=== PATIENT | female | born 1950 | race Caucasian/White ===

== ENCOUNTER → 2017-03-31 | Outpatient (CLI) | payer BC, OTHER ==
[~2017-03-31] MED LIST: ALBU8.5H2 IH; ALBU8.5H4 IH; ASP81CT PO; ASPI-892 PO; BENZ200C25 PO; BPR100TCR PO; BPR150TCR PO; CLOP75TA PO; DEXL60CA5 PO; DIPH25TA82 PO; DOXY100C2 PO; ESTR0.455 PO; GFN600TCR PO; IPRA3AMP11 INH; LEVO500T69 PO; LISI2.5T PO; LVT.025T PO; LVT.112T PO; Levofloxacin PO; METH4TAB PO; MTP25TSR PO; Nystatin PO; OMEP20CA12 PO; PNT40TEC PO; PRD20T PO; PRED5TAB PO; SCR1T1 PO; SIMV10TA3 PO; SIMV20TA3 PO; TRM50T PO; WRF1T PO; WRF5T PO
== END ==
LOC: CARD 14:04
PROVIDERS: ATTEND Nurse Practitioner Family
DX: I25.10 Atherosclerotic heart disease of native coronary artery without angina pectoris (principal); I65.23 Occlusion and stenosis of bilateral carotid arteries; E78.2 Mixed hyperlipidemia; R07.89 Other chest pain
CPT/HCPCS: 93306

== ENCOUNTER → 2017-04-04 | Outpatient (CLI) | payer BC, OTHER ==
[~2017-04-04] VITALS: Ht 165.1 cm; Wt 67.1 kg
[~2017-04-04] MED LIST changes: +CATHETER FLUSH 10 ML SYR IV PRN; +REGADENOSON 0.4 MG/5 ML SYR (LEXISCAN) IV ONE
[2017-04-04 09:32] VITALS: BP 140/90
--- NOTE | 2017-04-05 16:36 | STRESS TEST ---
DATE OF SERVICE: 04/04/2017 RESTING AND POST REGADENOSON TECHNETIUM 99M TETROFOSMIN SPECT CT IMAGING Baseline images were carried out after injection of 10.12 mCi Technetium 99 Tetrofosmin. This was followed by 0.4 mg regadenoson and 31 mCi of Technetium 99 Tetrofosmin for stress imaging. The electrocardiogram showed sinus rhythm at baseline and it did not change significantly with the regadenoson infusion. There was nonspecific ST abnormality throughout the study. Isolated premature ventricular contractions were seen. The patient did not report any significant symptoms with the regadenoson infusion. Review of images at rest and following stress did not indicate any significant perfusion defects consistent with significant myocardial ischemia or infarction. Gated images show normal global left ventricular systolic function with normal regional wall motion. Left ventricular ejection fraction is calculated to be 56%. Left ventricular end diastolic volume is 43 mL. TID is absent (1.09). CONCLUSIONS: 1. No evidence of any significant myocardial ischemia or infarction on this study. 2. Normal regional wall motion. 3. Normal global left ventricular systolic function with a calculated ejection fraction of 56%. Job ID: [id number] DocumentID: [id number] Dictated Date: 04/04/2017 18:10:10 Driving Teacher Date: 04/05/2017 00:38:57 Dictated By: RHONA TANNER MD, MA, FACP, FACC,
== END ==
LOC: CARD 07:58
PROVIDERS: ATTEND Nurse Practitioner Family
DX: I25.10 Atherosclerotic heart disease of native coronary artery without angina pectoris (principal); I65.23 Occlusion and stenosis of bilateral carotid arteries; E78.2 Mixed hyperlipidemia; R07.89 Other chest pain
CPT/HCPCS: 78452; 93017

== ENCOUNTER 2019-02-24 10:58 | Inpatient (IN) | payer BC, MEDICARE ==
[2019-02-24] VITALS (14 sets, daily range): BP systolic 108–152; BP diastolic 67–102
[~2019-02-24] VITALS: Ht 162.6 cm; Wt 72.3 kg
[~2019-02-24 10:58] MED LIST changes: -CATHETER FLUSH 10 ML SYR IV PRN; -REGADENOSON 0.4 MG/5 ML SYR (LEXISCAN) IV ONE
[2019-02-24] MEDS ORDERED: ASPIRIN 81 MG CHEW (CHILDREN'S ASA) PO ONE (11:15)
[2019-02-24] MEDS ORDERED: NITROGLYCERIN 0.4 MG SL TABS BTL 25'S SL PRN (11:15)
[2019-02-24 11:28] LABS: BASOPHILS % (AUTO) 0 % (0-10); EOSINOPHILS # (AUTO) 0.2 10^3/uL (0.0-0.3); EOSINOPHILS % (AUTO) 1 % (0-10); HEMATOCRIT 44 % (35-52); HEMOGLOBIN 15.2 G/DL (11.5-16.0); LYMPHOCYTES # (AUTO) 3.1 X 10^3 (1.0-4.0); LYMPHOCYTES % (AUTO) 25 % (12-44); MEAN CORPUSCULAR HEMOGLOBIN 30 PG (25-34); MEAN CORPUSCULAR HGB CONC 35 G/DL (32-36); MEAN CORPUSCULAR VOLUME 87 FL (80-99); MEAN PLATELET VOLUME 10.7 FL (7.4-10.4); MONOCYTES # (AUTO) 0.9 X 10^3 (0.0-1.0); MONOCYTES % (AUTO) 7 % (0-12); NEUTROPHILS # (AUTO) 8.5 X 10^3 (1.8-7.8); NEUTROPHILS % (AUTO) 67 % (42-75); PLATELET COUNT 345 10^3/uL (130-400); RED CELL DISTRIBUTION WIDTH 12.3 % (10.0-14.5); WHITE BLOOD COUNT 12.7 10^3/uL (4.3-11.0)
--- NOTE | 2019-02-24 11:30 | NUR ---
ORDER TO HOLD 2ND NITRO BY BLANCA ABDUL
[2019-02-24 11:36] LABS: INR 0.9 (0.8-1.4); PROTHROMBIN TIME PATIENT 12.6 SEC (12.2-14.7)
[2019-02-24 11:48] LABS: ALANINE AMINOTRANSFERASE 18 U/L (0-55); ALBUMIN 4.2 GM/DL (3.2-4.5); ALKALINE PHOSPHATASE 109 U/L (40-136); BILIRUBIN,TOTAL 1.4 MG/DL (0.1-1.0); BUN/CREATININE RATIO 20; CALCIUM 9.9 MG/DL (8.5-10.1); CARBON DIOXIDE 22 MMOL/L (21-32); CHLORIDE 109 MMOL/L (98-107); CREATININE SERUM 0.74 MG/DL (0.60-1.30); GFR ESTIMATED > 60; GLUCOSE 97 MG/DL (70-105); MAGNESIUM 1.9 MG/DL (1.8-2.4); POTASSIUM 4.1 MMOL/L (3.6-5.0); SODIUM 143 MMOL/L (135-145); TOTAL PROTEIN 7.7 GM/DL (6.4-8.2)
--- NOTE | 2019-02-24 11:49 | ED Chest Pain ---
General Chief Complaint: Chest Pain Stated Complaint: CP Nursing Triage Note: AMB TO ED C/O CHEST PAIN ONSET THIS AM PAIN WORSE MOVEMENT. Nursing Sepsis Screen: No Definite Risk Source: patient, family Exam Limitations: no limitations History of Present Illness Date Seen by Provider: February 24, 2019 Time Seen by Provider: 11:00 Initial Comments 68-year-old female who presents to the emergency room with complaints of left- sided chest pain that started this morning upon waking around 0730. She reports pain is worse with movement. She reports the pain starts in her left shoulder and radiates to mid chest. She was found to be hypoxic on arrival to the emergency room. She reports taking 2 Tylenol 500 mg for pain without relief. She reports history of SD in 2011. She reports that she has had a a cough the last 2 days. Timing/Duration: 4-6 hours Allergies and Home Medications Allergies Coded Allergies: cephalexin (Verified Allergy, Unknown, HIVES, 08/04/10) warfarin (Unverified Allergy, Unknown, 10/15/14) codeine (Verified Adverse Reaction, Unknown, MADE iLL, 08/04/10) Home Medications Albuterol Sulfate 8.5 Gm Aer.w.adap, 2 PUFF IH Q6H PRN for SHORTNESS OF BREATH, (Reported) Albuterol/Ipratropium 3 Ml Nebu, 3 ML INH RTQ6HR Prescribed by: JENNIE GARRETT on 03/07/151126 Aspirin 81 Mg Tabec, 81 MG PO HS, (Reported) Clopidogrel Bisulfate 75 Mg Tablet, 75 MG PO HS, (Reported) Guaifenesin 600 Mg Tab, 600 MG PO BID Prescribed by: JENNIE GARRETT on 03/07/15 112 Levothyroxine Sodium 112 Mcg Tab, 112 MCG PO DAILY, (Reported) Pantoprazole Sod 40 Mg Tab, 40 MG PO BID, (Reported) Prednisone 5 Mg Tablet, 5 MG PO UD Prescribed by: JENNIE GARRETT on 03/07/15 112 Simvastatin 20 Mg Tablet, 20 MG PO HS, (Reported) [Levofloxacin] 750 MG TABLET, 750 MG PO DAILY@1100 Prescribed by: JENNIE GARRETT on 03/07/15 112 [Nystatin] 5 ML SUSP, 5 ML PO Q6HR Prescribed by: JENNIE GARRETT on 03/07/151126 Patient Home Medication List Home Medication List Reviewed: Yes Review of Systems Review of Systems Constitutional: see HPI; No chills, No fever Respiratory: See HPI, Cough Cardiovascular: See HPI, Chest Pain All Other Systems Reviewed Negative Unless Noted: Yes Past Tqsidra-Lkdcqc-Issuin Hx Past Med/Social Hx: Reviewed Nursing Past Med/Soc Hx Patient Social History Alcohol Use: Denies Use 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) Smoking Status: Never a Smoker Recent Foreign Travel: No Contact w/Someone Who Travel: No Recent Infectious Disease Expo: No Recent Hopitalizations: Yes (tb in the past and pneumonia) Immunizations Up To Date Tetanus Booster (TDap): More than 5yrs Date of Pneumonia Vaccine: Oct 16, 2008 Date of Influenza Vaccine: Aug 16, 2014 Past Medical History Surgeries: Yes (HYSTERECTOMY, LUMPHECTOMY, BLADDER TUCK) Bladder Surgery, Coronary Stent, Hysterectomy Respiratory: Yes (HX TB) Pneumonia, Chronic Bronchitis, COPD Cardiac: Yes Coronary Artery Disease, Heart Attack, High Cholesterol Neurological: No 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 Disorders: No Female 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 Disorders: 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 Sexually Transmitted Disease: No HIV/AIDS: No Kidney Infection Gastrointestinal: Yes Gastroesophageal Reflux, Hiatal Hernia Musculoskeletal: Yes Arthritis Endocrine: Yes Hypothyroidsim Cataract, Tinnitis Loss of Vision: Denies Hearing Impairment: Denies Cancer: Yes Cervical Psychosocial: Yes Depression Integumentary: No Blood Disorders: No Adverse Reaction/Blood Tranf: No Family Medical History Reviewed Nursing Family Hx Alcoholism 19 FATHER Arthritis Cardiovascular disease 19 MOTHER Completed stroke 19 MOTHER Diabetes mellitus 19 MOTHER Drug abuse G8 BROTHER G8 BROTHER Hypertension 19 MOTHER Myocardial infarction 19 MOTHER Psychosocial problem 19 MOTHER G8 SISTER G8 SISTER Respiratory disorder No Family History of: AIDS Abdominal aortic aneurysm [place]'s disease Alzheimer's disease Aphasia Asthma Cancer of mouth Cataracts Colon cancer Congenital disease Congenital heart disease Coronary thrombosis Cystic fibrosis Deafness or hearing loss Dementia Dysphasia Fibrocystic disease of breast Gastroenteritis Glaucoma Headache disorder Hypercholesterolemia Infertility Kidney disease Neoplasm Not obtainable due to adoption Osteoporosis Parkinson's disease Prostate cancer Seizure disorder Severe allergy Thyroid disease Tuberculosis Visual disorder Physical Exam Vital Signs Vital Signs - First Documented 02/24/19 11:01 Pulse 100 Resp 18 B/P (MAP) 159/98 (118) Pulse Ox 92 O2 Delivery Nasal Cannula O2 Flow Rate 2.00 Capillary Refill : Less Than 3 Seconds Height, Weight, BMI Height: 5'1.00" Weight: 149lbs. 0.0oz. 67.626129fy; 24.6 BMI Method:Stated General Appearance: No Apparent Distress, WD/WN Neck: Full Range of Motion, Normal Inspection, Non Tender Respiratory: Lungs Clear, Normal Breath Sounds, No Accessory Muscle Use, No Respiratory Distress, Other (left-sided chest tenderness.) Cardiovascular: Regular Rate, Rhythm, No Edema, No Gallop, No JVD, No Murmur, Normal Peripheral Pulses Extremity: Normal Capillary Refill Neurologic/Psychiatric: Alert, Oriented x3, Normal Mood/Affect Skin: Normal Color, Warm/Dry Progress/Results/Core Measures Results/Orders Lab Results Laboratory Tests Test 02/24/19 11:17 Range/Units White Blood Count 12.7 H 4.3-11.0 10^3/uL Red Blood Count 5.07 4.35-5.85 10^6/uL Hemoglobin 15.2 11.5-16.0 G/DL Hematocrit 44 35-52 % Mean Corpuscular Volume 87 80-99 FL Mean Corpuscular Hemoglobin 30 25-34 PG Mean Corpuscular Hemoglobin Concent 35 32-36 G/DL Red Cell Distribution Width 12.3 10.0-14.5 % Platelet Count 345 130-400 10^3/uL Mean Platelet Volume 10.7 H 7.4-10.4 FL Neutrophils (%) (Auto) 67 42-75 % Lymphocytes (%) (Auto) 25 12-44 % Monocytes (%) (Auto) 7 0-12 % Eosinophils (%) (Auto) 1 0-10 % Basophils (%) (Auto) 0 0-10 % Neutrophils # (Auto) 8.5 H 1.8-7.8 X 10^3 Lymphocytes # (Auto) 3.1 1.0-4.0 X 10^3 Monocytes # (Auto) 0.9 0.0-1.0 X 10^3 Eosinophils # (Auto) 0.2 0.0-0.3 10^3/uL Basophils # (Auto) 0.0 0.0-0.1 10^3/uL Prothrombin Time 12.6 12.2-14.7 SEC INR Comment 0.9 0.8-1.4 Activated Partial Thromboplast Time 31 24-35 SEC D-Dimer 0.70 H 0.00-0.49 UG/ML Sodium Level 143 135-145 MMOL/L Potassium Level 4.1 3.6-5.0 MMOL/L Chloride Level 109 H 98-107 MMOL/L Carbon Dioxide Level 22 21-32 MMOL/L Anion Gap 12 5-14 MMOL/L Blood Urea Nitrogen 15 7-18 MG/DL Creatinine 0.74 0.60-1.30 MG/DL Estimat Glomerular Filtration Rate > 60 BUN/Creatinine Ratio 20 Glucose Level 97 70-105 MG/DL Calcium Level 9.9 8.5-10.1 MG/DL Corrected Calcium 9.7 8.5-10.1 MG/DL Magnesium Level 1.9 1.8-2.4 MG/DL Total Bilirubin 1.4 H 0.1-1.0 MG/DL Aspartate Amino Transf (AST/SGOT) 20 5-34 U/L Alanine Aminotransferase (ALT/SGPT) 18 0-55 U/L Alkaline Phosphatase 109 40-136 U/L Myoglobin 27.0 10.0-92.0 NG/ML Troponin I < 0.028 <0.028 NG/ML Total Protein 7.7 6.4-8.2 GM/DL Albumin 4.2 3.2-4.5 GM/DL Free Thyroxine 1.52 H 0.70-1.48 NG/DL TSH [place] Testing 0.00 L 0.35-4.94 UIU/ML My Orders Orders - BERNOT,GERONIMO Cbc With Automated Diff (02/24/19 11:06) Magnesium (02/24/19 11:06) Chest 1 View, Ap/Pa Only (02/24/19 11:06) Cardiac Profile 1 (02/24/19 11:06) Comprehensive Metabolic Panel (02/24/19 11:06) Myoglobin Serum (02/24/19 11:06) Protime With Inr (02/24/19 11:06) Partial Thromboplastin Time (02/24/19 11:06) O2 (02/24/19 11:06) Monitor-Rhythm Ecg Trace Only (02/24/19 11:06) Lipid Panel (02/25/19 06:00) Ed Iv/Invasive Line Start (02/24/19 11:06) Nitroglycerin 0.4 Mg Btl 25's (Nitrostat (02/24/19 11:15) Aspirin Chewable Tablet (Baby Aspirin Ch (02/24/19 11:15) Thyroid Analyzer (02/24/19 11:35) Fibrin Degradation Products (02/24/19 11:17) Free T4 (Free Thyroxine) (02/24/19 11:17) Medications Given in ED Vital Signs/I&O 02/24/19 02/24/19 11:01 11:57 Pulse 100 69 Resp 18 18 B/P (MAP) 159/98 (118) 129/95 (106) Pulse Ox 92 99 O2 Delivery Nasal Cannula Nasal Cannula O2 Flow Rate 2.00 2.00 Blood Pressure Mean: 118 Progress Progress Note : Time: 11:55 Progress Note I have seen and evaluated the patient. I've informed her of her imaging studies and the need for possible chest tube. I have discussed the case with Dr. BUSTAMANTE and he recommends admitting the patient to the ICU for chest tube placement. The patient agrees with plan of care. Awaiting laboratory findings at this time. Initial ECG Impression Date: February 24, 2019 Initial ECG Impression Time: 11:07 Initial ECG Rate: 94 Initial ECG Rhythm: Normal Sinus (ventricular bigeminy new finding.) Initial ECG Comparisson: Changed Diagnostic Imaging Diagonstic Imaging: Xray Plain Films/CT/US/NM/MRI: chest Comments [facility] [place], [place] NAME: MACKENZIE STANLEY [facility] REC#: [id number] PT STATUS: REG ER : 1950 PHYSICIAN: GERONIMO CULVER ADMIT DATE: 02/24/19/ER Draft Date of Exam:02/24/19 CHEST 1 VIEW, AP/PA ONLY Indication: Chest pain radiating to the left shoulder. Comparison: 07/07/2016. Discussion: Single portable upright view of the chest was obtained. A 2 cm left pneumothorax extending along the periphery of the left lung. There was no midline shift. Underlying COPD is present. Normal heart size. No pleural fluid or osseous abnormality. Impression: 1. Moderate left pneumothorax. Critical finding was called to the ER physician at time of exam by Dr. Morales. Dictated on workstation # [id number] Dict: 02/24/19 1143 Trans: 02/24/19 1149 [facility] [id number] Interpreted by: TIO MORALES MD Electronically signed by: Reviewed: Reviewed by Me, Discussed w/Radiologist Departure Communication (Admissions) Time/Spoke to Admitting Phy: 12:02 I have discussed the case with Dr. BUSTAMANTE at this time and he wishes to have the patient admitted to the ICU for spontaneous pneumothorax and chest tube placement. Impression Primary Impression: left sided spontaneous pneumothorax Disposition: ADMITTED INPATIENT Condition: Stable Admissions Decision to Admit Reason: Admit from ER (Trauma) Decision to Admit/Date: February 24, 2019 Time/Decision to Admit Time: 12:02 Departure-Patient Inst. Referrals: PAVEL STRATTON DO (PCP/Family) Primary Care Physician GERONIMO CULVER February 24, 2019 11:49
--- NOTE | 2019-02-24 12:25 | NUR ---
MACKENZIE STANLEY admitted to room CU7-1, with an admitting diagnosis of LEFT SPONTENOUS PNEUMO, on 02/24/19 from ER via BED, accompanied by STAFF.MACKENZIE STANLEY introduced to surroundings, call light, bed controls, phone, TV, temperature control, lights, meal times, smoking policy, visitor policy, side rail policy, bathrooms and showers. Patient Rights given to patient in the handbook. MACKENZIE STANLEY verbalizes understanding that [facility] is not responsible for the loss or damage to any personal effects or valuables that are kept in the patients posession during their hospitalization. The following Patient Care Plans were discussed with the PT: Discharge Planning, INEFFECTIVE BREATHING PATTERN,IMPAIRED GAS EXCHANGE, and KNOWLEDGE DEFICIT:PNEUMO. MACKENZIE STANLEY verbalizes understanding of Interdisciplinary Patient Education. Patient and family were informed about the Rapid Response Team and its purpose.
[2019-02-24 12:34] LABS: FIBRIN DEGRADATION PRODUCTS 0.7 UG/ML (0.00-0.49)
[2019-02-24 12:41] LABS: FREE T4 (FREE THYROXINE) 1.52 NG/DL (0.70-1.48)
[2019-02-24] MEDS ORDERED: LIDOCAINE 1% INJ 20 ML 20 ML VIAL ONE (12:53)
[2019-02-24] MEDS: fentaNYL INJECTION 100 MCG/2 ML AMP IV PRN ×3 (12:58→22:22)
--- NOTE | 2019-02-24 13:55 | HISTORY AND PHYSICAL ---
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 HISTORY OF PRESENT ILLNESS: The patient is a 68-year-old female who presented to the Emergency Department with left-sided chest pain when she woke up this morning. She stated that the pain was worse upon movement. The pain was of the left shoulder and did radiate towards the chest as well. She states that upon exertion, she did become short of breath as well. She states for the past two days she has been coughing significantly. She does have a history of COPD as well. A chest x-ray was performed, which did show a significant spontaneous pneumothorax approximately 30 to 35%. PAST MEDICAL HISTORY: COPD, history of tuberculosis, coronary artery disease, history of myocardial infarction, hypercholesterolemia, hypertension, gastroesophageal reflux disease, hypothyroid. PAST SURGICAL HISTORY: Hysterectomy with a bladder suspension, breast lumpectomy, cardiac catheterization and stent placement. ALLERGIES: CEPHALEXIN, WARFARIN and CODEINE. MEDICATIONS: Albuterol 2 puffs q.6 hours p.r.n., albuterol nebulizer q.6 hours, aspirin 81 mg daily, Plavix 75 mg daily, levothyroxine 112 mcg daily, Protonix 40 mg b.i.d., prednisone 5 mg every other day, simvastatin 20 mg daily, guaifenesin 600 mg b.i.d. SOCIAL HISTORY: Previous tuberculosis and pneumonia from past IV drug abuse. No regular cigarette smoke, negative alcohol. FAMILY HISTORY: Mother, stroke, diabetes. VITAL SIGNS: Blood pressure 159/98, pulse 92, respirations 18, pulse ox 100% on 2 liters nasal cannula. REVIEW OF SYSTEMS: Well-nourished female currently in no acute distress. She is not experiencing any shortness of breath, no difficulty breathing. She was experiencing some cough; however, she has a history of COPD and does have a chronic cough; however, this was much worse in the past two days. Exertion of shortness of breath. No sputum production, no hemoptysis. No nausea, vomiting, no diarrhea, constipation, no red blood per rectum, no dark tarry stools. No fever, chills, no recent inadvertent weight loss. All other review of systems negative. PHYSICAL EXAMINATION: CHEST: Scattered rales and rhonchi bilaterally, decreased breath sounds of the left chest. HEART: Regular, no murmurs. EXTREMITIES: No lower extremity edema, negative Homans sign. HEENT: No scleral icterus. NECK: No cervical lymphadenopathy. ABDOMEN: Soft, nontender, nondistended. SKIN: Warm, dry. ASSESSMENT AND PLAN: A 68-year-old female with spontaneous pneumothorax, most likely from a ruptured pulmonary bleb from history of COPD. We will place a pneumothorax catheter in place to one-way valve and proceed with followup chest x-ray. Job ID: [id number] DocumentID: [id number] Dictated Date: 02/24/2019 13:05:56 Peach Grower Date: 02/24/2019 13:54:36 Dictated By: DIANNE BUSTAMANTE MD
--- NOTE | 2019-02-24 14:06 | Diagnostic Imaging Report ---
Indication: Dyspnea, chest tube placement. Comparison: Earlier same date. Discussion: Single view of the chest was obtained. Small bore chest tube is now present on the left though this is likely extra cavitary as the tip is noted within the soft tissues. Small amount of subcutaneous emphysema is present. Pneumothorax is otherwise stable to slightly decreased. The right lung is well-aerated. Normal heart size. Impression: 1. Small bore left chest tube which is likely outside of the chest cavity, as described. Dictated by: Dictated on workstation # [id number]
[2019-02-24] MEDS: ACETAMINOPHEN 325 MG TABLET PO PRN (15:02)
--- NOTE | 2019-02-24 15:08 | OPERATIVE REPORT ---
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 PREPROCEDURE DIAGNOSIS: Spontaneous left pneumothorax. POSTPROCEDURE DIAGNOSIS: Spontaneous left pneumothorax. PROCEDURE: Placement of left chest tube. SURGEON: Dianne Bustamante MD ANESTHESIA: Local. ESTIMATED BLOOD LOSS: Minimal. FINDINGS: No air leak identified. DISPOSITION: The patient tolerated the procedure well. INDICATIONS: The patient is a 68-year-old female, who states that she had developed left-sided chest pain this morning upon awakening. She report that this hurt worse upon ambulation. She also reports that she has had a chronic cough; however, this has been worse over the past few days. The pain was persistent and she presented to the Emergency Department where a chest x-ray was performed, which did show a significant sized pneumothorax, approximately 30 to 35%. She does have a history of COPD and did smoke in the past; however, quit approximately 8 years ago. The left lateral chest was prepped and draped in standard surgical fashion. 1% lidocaine was then used to anesthetize the skin, subcutaneous tissue, muscle layers as well as the parietal pleura. A transverse skin incision was made using 11 blade. The trocar and sheath were then introduced without any resistance with drawing of air. The trocar was removed and the catheter suctioned with an aspiration syringe and the AirSeal device was applied to the chest wall. Good hemostasis was observed. The patient tolerated the procedure well. We will get a post-procedure chest x-ray. Job ID: [id number] DocumentID: [id number] Dictated Date: 02/24/2019 13:51:35 Concrete Mason Date: 02/24/2019 15:07:59 Dictated By: DIANNE BUSTAMANTE MD
[2019-02-25] VITALS (21 sets, daily range): BP systolic 78–142; BP diastolic 62–97
[2019-02-25] MEDS: fentaNYL INJECTION 100 MCG/2 ML AMP IV PRN ×6 (00:43→22:15)
[2019-02-25 03:37] LABS: BASOPHILS % (AUTO) 0 % (0-10); EOSINOPHILS # (AUTO) 0.1 10^3/uL (0.0-0.3); EOSINOPHILS % (AUTO) 1 % (0-10); HEMATOCRIT 43 % (35-52); HEMOGLOBIN 14.6 G/DL (11.5-16.0); LYMPHOCYTES # (AUTO) 1.2 X 10^3 (1.0-4.0); LYMPHOCYTES % (AUTO) 10 % (12-44); MEAN CORPUSCULAR HEMOGLOBIN 30 PG (25-34); MEAN CORPUSCULAR HGB CONC 34 G/DL (32-36); MEAN CORPUSCULAR VOLUME 88 FL (80-99); MONOCYTES # (AUTO) 0.8 X 10^3 (0.0-1.0); MONOCYTES % (AUTO) 6 % (0-12); NEUTROPHILS # (AUTO) 10.5 X 10^3 (1.8-7.8); NEUTROPHILS % (AUTO) 83 % (42-75); PLATELET COUNT 348 10^3/uL (130-400); RED CELL DISTRIBUTION WIDTH 12.8 % (10.0-14.5); WHITE BLOOD COUNT 12.6 10^3/uL (4.3-11.0)
[2019-02-25 03:58] LABS: BUN/CREATININE RATIO 17; CALCIUM 9.3 MG/DL (8.5-10.1); CARBON DIOXIDE 20 MMOL/L (21-32); CHLORIDE 108 MMOL/L (98-107); CHOLESTEROL 139 MG/DL (< 200); CREATININE SERUM 0.69 MG/DL (0.60-1.30); GFR ESTIMATED > 60; GLUCOSE 110 MG/DL (70-105); HDL CHOLESTEROL 49 MG/DL (40-60); MAGNESIUM 1.8 MG/DL (1.8-2.4); POTASSIUM 3.9 MMOL/L (3.6-5.0); SODIUM 141 MMOL/L (135-145); TRIGLYCERIDES 68 MG/DL (<150); VLDL CHOLESTEROL 14 MG/DL (5-40)
[2019-02-25] MEDS: POTASSIUM CL 10MEQ/50ML IVPB 50 ML IV SCH (05:52)
[2019-02-25] MEDS: KCL 20 MEQ TAB (K-DUR) PO SCH (05:53)
[2019-02-25] MEDS: MAGNESIUM 1 GM/100 ML IVPB 100 ML IV SCH (05:53)
--- NOTE | 2019-02-25 08:10 | Diagnostic Imaging Report ---
INDICATION: Pneumothorax. TECHNIQUE: Frontal view of the chest. COMPARISON: 02/24/2019 FINDINGS: Lung volumes are large. There is a moderate left pneumothorax which appears stable. There is a catheter adjacent to the left chest wall which is outside the chest cavity. Small amount of adjacent subcutaneous air is seen. No significant pleural effusion is seen. The cardiac silhouette is stable in size. IMPRESSION: 1. Stable moderate left pneumothorax. The catheter remains in the soft tissues outside the chest wall, appears unchanged. Dictated by: Dictated on workstation # [id number]
[2019-02-25] MEDS ORDERED: ASPIRIN 81 MG CHEW (CHILDREN'S ASA) PO NR (09:30)
[2019-02-25] MEDS ORDERED: PANTOPRAZOLE 40 MG (PROTONIX) TAB PO NR (09:30)
--- NOTE | 2019-02-25 09:34 | Consultation-Cardiology ---
HPI-Cardiology Cardiology Consultation: Date of Consultation 02/25/19 Time Seen by a Provider: 09:20 Date of Admission Attending Physician Gertrude Steele MD Admitting Physician [facility] Consulting Physician RHONA TANNER MD, MA, FACP, FACC, FSCAI, CCDS HPI: Chief Complaint: CC: L-sided chest pain HPI: 68 yo woman who developed L-sided cp yesterday and an increase in chronic shortness of breath. Has been diagnosed with spontaneous PTX and has a chest- tube in place on the L side. Has pleuritic chest discomfort on the L. No palp or syncope. No leg swelling Review of Systems-Cardiology Review of Systems Constitutional: malaise; No weight loss, No weight gain Eyes: No vision change Ears/Nose/Throat: No ear discharge, No nasal drainage, No recent hearing loss Respiratory: As described under HPI Cardiovascular: As described under HPI Gastrointestinal: No constipation, No diarrhea, No nausea, No vomiting Genitourinary: No dysuria, No hematuria, No urine frequency changes Musculoskeletal: joint pain (chronic) Skin: No rash, No ulcerations Psychiatric/Neurological: No seizure, No focal weakness, No syncope Hematologic: No bleeding abnormalities All Other Systems Reviewed Negative Unless Noted: Yes DFF-[id number]-[id number] Hx Patient Social History Alcohol Use: Denies Use 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 Family Medical History Family History: Alcoholism 19 FATHER Arthritis Cardiovascular disease 19 MOTHER Completed stroke 19 MOTHER Diabetes mellitus 19 MOTHER Drug abuse G8 BROTHER G8 BROTHER Hypertension 19 MOTHER Myocardial infarction 19 MOTHER Psychosocial problem 19 MOTHER G8 SISTER G8 SISTER Respiratory disorder No Family History of: AIDS Abdominal aortic aneurysm Ad's disease Alzheimer's disease Aphasia Asthma Cancer of mouth Cataracts Colon cancer Congenital disease Congenital heart disease Coronary thrombosis Cystic fibrosis Deafness or hearing loss Dementia Dysphasia Fibrocystic disease of breast Gastroenteritis Glaucoma Headache disorder Hypercholesterolemia Infertility Kidney disease Neoplasm Not obtainable due to adoption Osteoporosis Parkinson's disease Prostate cancer Seizure disorder Severe allergy Thyroid disease Tuberculosis Visual disorder Allergies and Home Medications Allergies Coded Allergies: cephalexin (Verified Allergy, Unknown, HIVES, 08/04/10) warfarin (Unverified Allergy, Unknown, 10/15/14) codeine (Verified Adverse Reaction, Unknown, MADE iLL, 08/04/10) Home Medications Albuterol Sulfate 8.5 Gm Aer.w.adap, 2 PUFF IH Q6H PRN for SHORTNESS OF BREATH, (Reported) Albuterol/Ipratropium 3 Ml Nebu, 3 ML INH RTQ6HR Prescribed by: JENNIE GARRETT on 03/07/15 1127 Aspirin 81 Mg Tabec, 81 MG PO HS, (Reported) Clopidogrel Bisulfate 75 Mg Tablet, 75 MG PO HS, (Reported) Guaifenesin 600 Mg Tab, 600 MG PO BID Prescribed by: JENNIE GARRETT on 03/07/15 112 Levothyroxine Sodium 112 Mcg Tab, 112 MCG PO DAILY, (Reported) Pantoprazole Sod 40 Mg Tab, 40 MG PO BID, (Reported) Prednisone 5 Mg Tablet, 5 MG PO UD Prescribed by: JENNIE GARRETT on 03/07/15 112 Simvastatin 20 Mg Tablet, 20 MG PO HS, (Reported) [Levofloxacin] 750 MG TABLET, 750 MG PO DAILY@1100 Prescribed by: JENNIE GARRETT on 03/07/15 1129 [Nystatin] 5 ML SUSP, 5 ML PO Q6HR Prescribed by: JENNIE GARRETT on 03/07/15 112 Patient Home Medication List Home Medication List Reviewed: Yes Physical Exam-Cardiology Physical Exam Vital Signs/I&O 02/24/19 02/24/19 02/24/19 02/25/19 22:00 23:00 23:30 00:00 Pulse 68 67 71 Resp 20 15 18 B/P (MAP) 141/79 (99) 128/79 (95) 121/75 (90) Pulse Ox 95 90 94 O2 Delivery Nasal Cannula Nasal Cannula Nasal Cannula Nasal Cannula O2 Flow Rate 2.00 2.00 2.00 2.00 02/25/19 02/25/19 02/25/19 02/25/19 00:00 00:00 01:00 01:05 Temp 98.7 Pulse 77 79 Resp 26 B/P (MAP) 112/83 (93) O2 Delivery Nasal Cannula Nasal Cannula O2 Flow Rate 2.00 2.00 02/25/19 02/25/19 02/25/1913/19 02:00 03:00 04:00 04:00 Temp 98.6 Pulse 62 69 63 Resp 15 16 15 B/P (MAP) 121/72 (88) 135/77 (96) 135/77 (96) Pulse Ox 93 94 94 O2 Delivery Nasal Cannula Nasal Cannula Nasal Cannula O2 Flow Rate 2.00 2.00 2.00 02/25/19 02/25/19 02/25/19 02/25/19 04:00 05:00 07:00 07:00 Pulse 69 63 66 Resp 14 17 B/P (MAP) 140/77 (98) Pulse Ox 94 O2 Delivery Nasal Cannula Nasal Cannula Nasal Cannula O2 Flow Rate 2.00 2.00 2.00 02/25/19 02/25/19 08:00 09:00 Pulse 69 76 Resp 41 25 B/P (MAP) 109/78 (88) 128/70 (89) Pulse Ox 96 96 O2 Delivery Nasal Cannula Nasal Cannula O2 Flow Rate 2.00 2.00 02/25/19 00:00 Intake Total 540 ml Balance 540 ml Capillary Refill : Less Than 3 Seconds Constitutional: AAO x 3, well-developed, well-nourished HEENT: EOMI, hearing is well preserved; No xanthelasmas are seen Neck: carotid pulses are 2 + bilaterally, with good upstrokes Respiratory: No accessory muscle use; other (fair air entry; prolonged exp) Cardiovascular: regular rate-rhythm, S1 and S2, systolic murmur (soft WILFREDO at card base) Gastrointestinal: No tender; soft; No guarding, No rebound; audible bowel sounds Extremities: No clubbing, No cyanosis, No significant edema Neurologic/Psychiatric: oriented x 3, grossly intact, power is 5/5 both on sides Skin: No rash on exposed areas, No ulcerations on exposed areas Data Review Labs Laboratory Tests 02/24/19 11:17: White Blood Count 12.7H, Red Blood Count 5.07, Hemoglobin 15.2, Hematocrit 44, Mean Corpuscular Volume 87, Mean Corpuscular Hemoglobin 30, Mean Corpuscular Hemoglobin Concent 35, Red Cell Distribution Width 12.3, Platelet Count 345, Mean Platelet Volume 10.7H, Neutrophils (%) (Auto) 67, Lymphocytes (%) (Auto) 25 , Monocytes (%) (Auto) 7, Eosinophils (%) (Auto) 1, Basophils (%) (Auto) 0, Neutrophils # (Auto) 8.5H, Lymphocytes # (Auto) 3.1, Monocytes # (Auto) 0.9, Eosinophils # (Auto) 0.2, Basophils # (Auto) 0.0, Prothrombin Time 12.6, INR Comment 0.9, Activated Partial Thromboplast Time 31, D-Dimer 0.70H, Sodium Level 143, Potassium Level 4.1, Chloride Level 109H, Carbon Dioxide Level 22, Anion Gap 12, Blood Urea Nitrogen 15, Creatinine 0.74, Estimat Glomerular Filtration Rate > 60, BUN/Creatinine Ratio 20, Glucose Level 97, Calcium Level 9.9, Corrected Calcium 9.7, Magnesium Level 1.9, Total Bilirubin 1.4H, Aspartate Amino Transf (AST/SGOT) 20, Alanine Aminotransferase (ALT/SGPT) 18, Alkaline Phosphatase 109, Myoglobin 27.0, Troponin I < 0.028, Total Protein 7.7 , Albumin 4.2, Free Thyroxine 1.52H, TSH [place] Testing 0.00L 02/25/19 03:05: White Blood Count 12.6H, Red Blood Count 4.93, Hemoglobin 14.6, Hematocrit 43, Mean Corpuscular Volume 88, Mean Corpuscular Hemoglobin 30, Mean Corpuscular Hemoglobin Concent 34, Red Cell Distribution Width 12.8, Platelet Count 348, Mean Platelet Volume 11.0H, Neutrophils (%) (Auto) 83H, Lymphocytes (%) (Auto) 10L, Monocytes (%) (Auto) 6, Eosinophils (%) (Auto) 1, Basophils (%) (Auto) 0, Neutrophils # (Auto) 10.5H, Lymphocytes # (Auto) 1.2, Monocytes # (Auto) 0.8, Eosinophils # (Auto) 0.1, Basophils # (Auto) 0.0, Sodium Level 141, Potassium Level 3.9, Chloride Level 108H, Carbon Dioxide Level 20L, Anion Gap 13, Blood Urea Nitrogen 12, Creatinine 0.69, Estimat Glomerular Filtration Rate > 60, BUN/ Creatinine Ratio 17, Glucose Level 110H, Calcium Level 9.3, Magnesium Level 1.8 , Triglycerides Level 68, Cholesterol Level 139, LDL Cholesterol Direct 76, VLDL Cholesterol 14, HDL Cholesterol 49 Laboratory Tests 02/24/19 11:17 02/25/19 03:05 A/P-Cardiology Assessment/Admission Diagnosis Spontaneous L-sided pneumothorax, treated with chest tube placement by Dr Steele on 02/24/19 Coronary artery disease with a history of acute myocardial infarction in December 2011 which was treated with primary angioplasty and stenting of the proximal right coronary artery. The patient received Resolute 2.5 x 13 millimeter stent in the right coronary artery. MPI from March 2017 showed no evidence of significant myocardial ischemia. LVEF 56% Ischemic cardiomyopathy with an ejection fraction of 40 to 45% at the time of cardiac catheterization of December 2011. Subsequent echocardiogram from March 2017 showed an left ventricular ejection fraction of 60 to 65%. Trivial TR and TR. History of tobacco use from which she has been refraining since 2009 Hypothyroidism being treated with thyroid replacement therapy and being managed by Dr. Garcia. Reflux esophagitis and a small hiatal hernia and gastroesophageal reflux per upper endoscopy carried out by Dr. Steele in January 2012. Allergy to SHAHRIAR inhibitor. Allergy to warfarin. Hyperlipidemia currently being treated with statin therapy. Minimal carotid arterial disease per carotid u/s from June 2017 Discussion and Recomendations * Continue low-dose ASA, given CAD * Monitor labs * Advised to continue to refrain from tobacco use * Chest tube management is with Dr Steele Clinical Quality Measures AMI/AHF: ASA po Prior to arrival: No DVT/VTE Risk/Contraindication: Risk Factor Score Per Nursin RFS Level Per Nursing on Admit: 3=High RHONA TANNER MD FACP FACC CCDS February 25, 2019 09:34
[2019-02-25] MEDS ORDERED: ATOR40TA70 PO (09:56)
[2019-02-25] MEDS ORDERED: LEVO112T55 PO (09:56)
[2019-02-25] MEDS ORDERED: PANT40TA3 PO (09:56)
[2019-02-25] MEDS ORDERED: ASPI-983 PO (09:59)
[2019-02-25] MEDS ORDERED: CETI10TA17 PO (09:59)
[2019-02-25] MEDS ORDERED: BUDE10.2 IH (10:01)
[2019-02-25] MEDS ORDERED: RT-ALBUINH IH (10:04)
--- NOTE | 2019-02-25 10:04 | NUR ---
SPOKE WITH THE PATIENT ABOUT HER MEDICATIONS. SHE VERIFIED HE PRESCRIPTION MEDS AND I CLARIFIED DOSE WITH THE EXT MED HX. SHE ALSO TAKES ASPIRIN 81MG HS AND ZYRTEC AM DAILY OTC. SHE STATES SHE RECENTLY FILLED AN INHALER AT [facility], I CALLED THEM AND VERIFIED THEY FILL PROAIR.
[2019-02-25] MEDS: ACETAMINOPHEN 325 MG TABLET PO PRN (10:37)
--- NOTE | 2019-02-25 11:10 | NUR ---
Pastoral care visit.
--- NOTE | 2019-02-25 15:31 | Diagnostic Imaging Report ---
INDICATION: Followup pneumothorax. TIME OF EXAM: 03:15 p.m. COMPARISON: Correlation is made with prior chest from earlier the same day. FINDINGS: Small caliber chest tube on the left continues to be malpositioned. This likely has the tip in the soft tissues of the lateral chest wall. There does appear to be a basilar component to the pneumothorax with gas noted along the left base as well as along the medial aspect of the left lower chest. There is atelectasis of the left lower lobe. Right lung is well-expanded and clear. The heart size is normal. IMPRESSION: Left-sided chest tube appears to be malpositioned but similar to the exam earlier the same day. This appears to be extrathoracic. There is left basilar pneumothorax noted. There has been some increase in amount of left lower lobe atelectasis since exam earlier the same day. Dictated by: Dictated on workstation # [id number]
[2019-02-25] MEDS ORDERED: LIDOCAINE 1% INJ 20 ML 20 ML VIAL ONE (18:55)
--- NOTE | 2019-02-25 19:46 | Diagnostic Imaging Report ---
INDICATION: Chest tube placement. Frontal chest obtained at 7:22 p.m. and is compared to 3:15 p.m. on the same day. FINDINGS: There appears to be a new left-sided small-caliber chest tube in place. The left basilar pneumothorax has resolved compared to the prior study. There is some minimal left basilar atelectasis. Heart is normal in size. There is mild central vascular congestion with chronic appearing increased markings. IMPRESSION: Chronic appearing increased interstitial markings. Resolution of left basilar pneumothorax with placement of new left-sided small-caliber pleural catheter. There is some mild left basilar atelectasis. Dictated by: Dictated on workstation # [id number]
--- NOTE | 2019-02-25 21:28 | Progress Note (SOAP) ---
Subjective Date Seen by a Provider: February 25, 2019 Time Seen by a Provider: 19:00 Subjective/Events-last exam mild left chest pain with deep inspiration. malpositioned or disloged chest tube catheter. will plan for small ptx chest tube however connect to pleurovac and seal to monitor for leak. otherwise clinically stable. Objective Exam Vital Signs Date Time Temp Pulse Resp B/P (MAP) Pulse Ox O2 Delivery O2 Flow Rate FiO2 02/25/19 20:00 Nasal Cannula 2.00 02/25/19 20:00 97.9 02/25/19 17:19 Nasal Cannula 2.00 02/25/19 17:00 75 35 142/82 (102) 96 Nasal Cannula 2.00 02/25/19 16:00 Nasal Cannula 2.00 02/25/19 16:00 65 19 137/81 (99) 96 Nasal Cannula 2.00 02/25/19 15:00 65 17 123/66 (85) 94 Nasal Cannula 2.00 02/25/19 14:00 77 30 132/83 (99) 95 Nasal Cannula 2.00 02/25/19 13:00 74 18 110/89 (96) 98 Nasal Cannula 2.00 02/25/19 12:48 71 02/25/19 12:00 75 17 112/77 (89) 95 Nasal Cannula 2.00 02/25/19 12:00 Nasal Cannula 2.00 02/25/19 12:00 98.6 02/25/19 11:00 68 21 108/70 (83) 95 Nasal Cannula 2.00 02/25/19 10:00 73 13 93/62 (72) 93 Nasal Cannula 2.00 02/25/19 09:00 76 25 128/70 (89) 96 Nasal Cannula 2.00 02/25/19 08:00 96.1 02/25/19 08:00 Nasal Cannula 2.00 02/25/19 08:00 69 41 109/78 (88) 96 Nasal Cannula 2.00 02/25/19 07:00 66 17 Nasal Cannula 2.00 02/25/19 07:00 63 02/25/19 05:00 69 14 140/77 (98) 94 Nasal Cannula 2.00 02/25/19 04:00 Nasal Cannula 2.00 02/25/19 04:00 63 15 135/77 (96) 94 Nasal Cannula 2.00 02/25/19 04:00 98.6 02/25/19 03:00 69 16 135/77 (96) 94 Nasal Cannula 2.00 02/25/19 02:00 62 15 121/72 (88) 93 Nasal Cannula 2.00 02/25/19 01:05 79 02/25/19 01:00 77 26 112/83 (93) Nasal Cannula 2.00 02/25/19 00:00 Nasal Cannula 2.00 02/25/19 00:00 98.7 02/25/19 00:00 71 18 121/75 (90) 94 Nasal Cannula 2.00 02/24/19 23:30 Nasal Cannula 2.00 02/24/19 23:00 67 15 128/79 (95) 90 Nasal Cannula 2.00 02/24/19 22:00 68 20 141/79 (99) 95 Nasal Cannula 2.00 I & O 02/25/19 07:00 Intake Total 1190 ml Balance 1190 ml Capillary Refill : Less Than 3 Seconds General Appearance: No Apparent Distress HEENT: PERRL/EOMI Neck: Full Range of Motion Respiratory: Chest Non Tender, Normal Breath Sounds, Decreased Breath Sounds Cardiovascular: Regular Rate, Rhythm Gastrointestinal: normal bowel sounds, non tender, soft Extremity: Normal Capillary Refill Neurologic/Psychiatric: Alert, Oriented x3 Skin: Normal Color Lymphatic: No Adenopathy Results Lab Laboratory Tests 02/25/19 03:05: White Blood Count 12.6H, Red Blood Count 4.93, Hemoglobin 14.6, Hematocrit 43, Mean Corpuscular Volume 88, Mean Corpuscular Hemoglobin 30, Mean Corpuscular Hemoglobin Concent 34, Red Cell Distribution Width 12.8, Platelet Count 348, Mean Platelet Volume 11.0H, Neutrophils (%) (Auto) 83H, Lymphocytes (%) (Auto) 10L, Monocytes (%) (Auto) 6, Eosinophils (%) (Auto) 1, Basophils (%) (Auto) 0, Neutrophils # (Auto) 10.5H, Lymphocytes # (Auto) 1.2, Monocytes # (Auto) 0.8, Eosinophils # (Auto) 0.1, Basophils # (Auto) 0.0, Sodium Level 141, Potassium Level 3.9, Chloride Level 108H, Carbon Dioxide Level 20L, Anion Gap 13, Blood Urea Nitrogen 12, Creatinine 0.69, Estimat Glomerular Filtration Rate > 60, BUN/ Creatinine Ratio 17, Glucose Level 110H, Calcium Level 9.3, Magnesium Level 1.8 , Triglycerides Level 68, Cholesterol Level 139, LDL Cholesterol Direct 76, VLDL Cholesterol 14, HDL Cholesterol 49 Microbiology 02/24/19 MRSA Screen - Final, Complete MRSA not isolated Assessment/Plan Assessment/Plan Assess & Plan/Chief Complaint spontaneous left ptx. malpositioned or dislodged short small bore cath. will place longer small bore flexible cath and connect to pleurovac to monitor for air leak and place on suction vs. water seal. daily CXR. Clinical Quality Measures AMI/AHF: ASA po Prior to arrival: No DVT/VTE Risk/Contraindication: Risk Factor Score Per Nursin RFS Level Per Nursing on Admit: 3=High DIANNE BUSTAMANTE MD February 25, 2019 21:28
[2019-02-26] VITALS (17 sets, daily range): BP systolic 85–137; BP diastolic 51–84
[2019-02-26] MEDS: fentaNYL INJECTION 100 MCG/2 ML AMP IV PRN ×6 (00:37→13:38)
[2019-02-26 03:41] LABS: BASOPHILS % (AUTO) 0 % (0-10); EOSINOPHILS # (AUTO) 0.3 10^3/uL (0.0-0.3); EOSINOPHILS % (AUTO) 3 % (0-10); HEMATOCRIT 41 % (35-52); HEMOGLOBIN 13.8 G/DL (11.5-16.0); LYMPHOCYTES # (AUTO) 2.2 X 10^3 (1.0-4.0); LYMPHOCYTES % (AUTO) 22 % (12-44); MEAN CORPUSCULAR HEMOGLOBIN 30 PG (25-34); MEAN CORPUSCULAR HGB CONC 34 G/DL (32-36); MEAN CORPUSCULAR VOLUME 89 FL (80-99); MEAN PLATELET VOLUME 10.7 FL (7.4-10.4); MONOCYTES # (AUTO) 0.8 X 10^3 (0.0-1.0); MONOCYTES % (AUTO) 8 % (0-12); NEUTROPHILS # (AUTO) 7.1 X 10^3 (1.8-7.8); NEUTROPHILS % (AUTO) 68 % (42-75); PLATELET COUNT 323 10^3/uL (130-400); RED CELL DISTRIBUTION WIDTH 12.4 % (10.0-14.5); WHITE BLOOD COUNT 10.4 10^3/uL (4.3-11.0)
[2019-02-26 04:02] LABS: BUN/CREATININE RATIO 18; CALCIUM 8.9 MG/DL (8.5-10.1); CARBON DIOXIDE 23 MMOL/L (21-32); CHLORIDE 107 MMOL/L (98-107); CREATININE SERUM 0.71 MG/DL (0.60-1.30); GFR ESTIMATED > 60; GLUCOSE 101 MG/DL (70-105); MAGNESIUM 1.7 MG/DL (1.8-2.4); POTASSIUM 3.8 MMOL/L (3.6-5.0); SODIUM 139 MMOL/L (135-145)
--- NOTE | 2019-02-26 04:29 | OPERATIVE REPORT ---
DATE OF SERVICE: 02/25/2019 ATTENDING PHYSICIAN: [facility]. PREPROCEDURE DIAGNOSIS: Persistent spontaneous left pneumothorax. POSTPROCEDURE DIAGNOSIS: Persistent spontaneous left pneumothorax. PROCEDURE: Placement of left thoracentesis catheter. SURGEON: Dianne Bustamante MD. ANESTHESIA: Local. ESTIMATED BLOOD LOSS: Minimal. FINDINGS: Small air leak. Good positioning on chest x-ray. DISPOSITION: The patient tolerated the procedure well. INDICATIONS: The patient is a 68-year-old female who presented with left-sided chest pain upon awakening. She does have history of COPD and states that she has been coughing more in the past two days. The pain was worse upon ambulation. She also had reported exertional shortness of breath. In the Emergency Department, a chest x-ray was performed, which did show approximately 30% to 35% pneumothorax. An attempt at the chest tube, a small chest tube with its own water seal was done yesterday; however, it appeared that the tube became dislodged. She did report immediate relief and there was air suctioned out, however. During the process of placement or movement, the catheter became dislodged. At this time, it was decided to proceed with placement of a small 8-Estonian longer thoracentesis catheter with the trocar and placed this to suction and water seal. DESCRIPTION OF PROCEDURE: The left chest was prepped and draped in standard surgical fashion. At approximately the anterior axillary line between the sixth and seventh intercostal space, skin, subcutaneous tissue, muscle layers as well as the parietal pleura were anesthetized using 1% lidocaine. A 1% lidocaine was used to anesthetize the overlying skin then the catheter. The trocar and catheter were then advanced with drawing of air and the catheter was advanced over the trocar. The catheter was then connected to tubing and a waterseal vacutainer with a small air leak identified and no liquid drainage. The catheter was then covered with sterile gauze followed by Op-Site. The patient tolerated the procedure well. The post-procedure chest x-ray did show an evacuation of the pneumothorax as well as good placement of the pigtail catheter. We will continue to monitor the Pleur-evac for resolution of the water seal. Job ID: [id number] DocumentID: [id number] Dictated Date: 02/25/2019 19:42:26 Operations Liaison Date: 02/26/2019 04:29:36 Dictated By: DIANNE BUSTAMANTE MD
[2019-02-26] MEDS: KCL 20 MEQ TAB (K-DUR) PO SCH (05:08)
[2019-02-26] MEDS: POTASSIUM CL 10MEQ/50ML IVPB 50 ML IV SCH (05:08)
[2019-02-26] MEDS: MAGNESIUM 1 GM/100 ML IVPB 100 ML IV SCH ×3 (05:54→06:42)
--- NOTE | 2019-02-26 08:10 | Diagnostic Imaging Report ---
Indication: Pneumothorax. Comparison made with prior examination of 02/25/2019. Findings: Heart size is stable. Mediastinum is unremarkable. Some patchy bibasilar subsegmental atelectasis and/or pneumonitis. No pleural effusion or pneumothorax. Impression: Patchy bibasilar subsegmental atelectasis and/or pneumonitis. Dictated by: Dictated on workstation # [id number]
--- NOTE | 2019-02-26 08:41 | Progress Note-Cardiology ---
Cardiology SOAP Progress Note Subjective: Sitting up in bed. Denies c/o CP or palpitations. Objective: I&O/Vital Signs 02/25/19 02/26/19 02/26/19 02/26/19 23:00 00:00 00:00 00:00 Temp 98.9 Pulse 54 67 Resp 22 19 B/P (MAP) 118/86 (97) 137/73 (94) Pulse Ox 96 99 O2 Delivery Nasal Cannula Nasal Cannula Nasal Cannula O2 Flow Rate 2.00 2.00 2.00 02/26/19 02/26/19 02/26/19 02/26/19 01:00 01:00 02:00 03:00 Pulse 60 60 65 59 Resp 26 14 27 B/P (MAP) 112/74 (87) 121/71 (88) 129/84 (99) Pulse Ox 95 97 98 O2 Delivery Nasal Cannula Nasal Cannula Nasal Cannula O2 Flow Rate 2.00 2.00 2.00 02/26/19 02/26/19 02/26/19 02/26/19 04:00 04:00 04:00 05:00 Temp 98.6 Pulse 73 61 Resp 18 20 B/P (MAP) 125/78 (94) 114/66 (82) Pulse Ox 96 94 O2 Delivery Nasal Cannula Nasal Cannula Nasal Cannula O2 Flow Rate 2.00 2.00 2.00 02/26/19 02/26/19 02/26/19 02/26/19 06:00 07:00 07:00 08:00 Pulse 64 65 65 68 Resp 26 14 20 B/P (MAP) 120/77 (91) 113/69 (84) 116/79 (91) Pulse Ox 94 92 95 O2 Delivery Nasal Cannula Nasal Cannula Nasal Cannula O2 Flow Rate 2.00 2.00 2.00 02/26/19 02/26/19 02/26/19 08:00 08:00 09:00 Temp 97.3 Pulse 68 Resp 29 B/P (MAP) 122/72 (89) Pulse Ox 95 O2 Delivery Nasal Cannula Nasal Cannula O2 Flow Rate 2.00 2.00 02/26/19 00:00 Intake Total 530 ml Output Total 150 ml Balance 380 ml Weight (Pounds): 159 Weight (Ounces): 6.0 Weight (Calculated Kilograms): 72.987202 Constitutional: AAO x 3, well-developed, well-nourished Respiratory: No accessory muscle use; other (fair air entry; prolonged exp; chest tube in place) Cardiovascular: regular rate-rhythm, S1 and S2, systolic murmur (soft WILFREDO at card base) Gastrointestional: No tender; soft; No guarding, No rebound; audible bowel sounds Extremities: No clubbing, No cyanosis, No significant edema Neurologic/Psychiatric: oriented x 3, grossly intact, power is 5/5 both on sides Skin: No rash on exposed areas, No ulcerations on exposed areas Results/Procedures: Labs Laboratory Tests 02/26/19 03:25: White Blood Count 10.4, Red Blood Count 4.58, Hemoglobin 13.8, Hematocrit 41, Mean Corpuscular Volume 89, Mean Corpuscular Hemoglobin 30, Mean Corpuscular Hemoglobin Concent 34, Red Cell Distribution Width 12.4, Platelet Count 323, Mean Platelet Volume 10.7H, Neutrophils (%) (Auto) 68, Lymphocytes (%) (Auto) 22 , Monocytes (%) (Auto) 8, Eosinophils (%) (Auto) 3, Basophils (%) (Auto) 0, Neutrophils # (Auto) 7.1, Lymphocytes # (Auto) 2.2, Monocytes # (Auto) 0.8, Eosinophils # (Auto) 0.3, Basophils # (Auto) 0.0, Sodium Level 139, Potassium Level 3.8, Chloride Level 107, Carbon Dioxide Level 23, Anion Gap 9, Blood Urea Nitrogen 13, Creatinine 0.71, Estimat Glomerular Filtration Rate > 60, BUN/ Creatinine Ratio 18, Glucose Level 101, Calcium Level 8.9, Magnesium Level 1.7L Microbiology 02/24/19 MRSA Screen - Final, Complete MRSA not isolated Procedures NAME: [facility] REC#: [id number] PT STATUS: ADM IN : 1950 PHYSICIAN: DIANNE STEELE MD ADMIT DATE: 02/24/19/ICU Draft Date of Exam:02/26/19 CHEST 1 VIEW, AP/PA ONLY Indication: Pneumothorax. Comparison made with prior examination of 02/25/2019. Findings: Heart size is stable. Mediastinum is unremarkable. Some patchy bibasilar subsegmental atelectasis and/or pneumonitis. No pleural effusion or pneumothorax. Impression: Patchy bibasilar subsegmental atelectasis and/or pneumonitis. Dictated on workstation # [id number] Dict: 02/26/19 0657 Trans: 02/26/19 0809 CV [id number] Interpreted by: BIA PINTO MD Electronically signed by: A/P: Assessment: Spontaneous L-sided pneumothorax, treated with chest tube placement by Dr Steele on 02/24/19 Coronary artery disease with a history of acute myocardial infarction in December 2011 which was treated with primary angioplasty and stenting of the proximal right coronary artery. The patient received Resolute 2.5 x 13 millimeter stent in the right coronary artery. MPI from March 2017 showed no evidence of significant myocardial ischemia. LVEF 56% Ischemic cardiomyopathy with an ejection fraction of 40 to 45% at the time of cardiac catheterization of December 2011. Subsequent echocardiogram from March 2017 showed an left ventricular ejection fraction of 60 to 65%. Trivial TR and TR. History of tobacco use from which she has been refraining since 2009 Hypothyroidism being treated with thyroid replacement therapy and being managed by Dr. Garcia. Reflux esophagitis and a small hiatal hernia and gastroesophageal reflux per upper endoscopy carried out by Dr. Steele in January 2012. Allergy to SHAHRIAR inhibitor. Allergy to warfarin. Hyperlipidemia currently being treated with statin therapy. Minimal carotid arterial disease per carotid u/s from June 2017 Plan: * Continue low-dose ASA, given CAD * Monitor labs * Advised to continue to refrain from tobacco use * Hypomag - replace * Chest tube management is with Dr Steele Physician Assessment Physician Assessment Pleuritic, L-sided cp. No palp or syncope. Shortness of breath improved post chest tube placement Lungs: fair entry, diminished at the bases Cor: reg Ext: no c/c. Mild edema A&R * As documented in our note above that I updated (italics) and as noted below * Continue ASA because of a h/o CAD and cor stents * Monitor labs from time to time Clinical Quality Measures AMI/AHF: ASA po Prior to arrival: DAVID Chavez [facility] February 26, 2019 08:41 RHONA TANNER MD FACP [facility] CCDS February 26, 2019 10:09
[2019-02-26] MEDS ORDERED: ASPIRIN 81 MG CHEW (CHILDREN'S ASA) PO SCH (09:00)
[2019-02-26] MEDS ORDERED: PANTOPRAZOLE 40 MG (PROTONIX) TAB PO SCH (09:00)
[2019-02-26] MEDS ORDERED: ONDANSETRON 4 MG/2 ML (SDV) Z0FRAN ONE (09:16)
--- NOTE | 2019-02-26 10:50 | NUR ---
Pastoral care visit.
[2019-02-26] MEDS: ACETAMINOPHEN 325 MG TABLET PO PRN (10:57)
--- NOTE | 2019-02-26 13:00 | NUR ---
Pt positioned for chest tube removal at this time. Verbal order received for 100mcg of Fentanyl to be given prior to removal by Dr. Steele. Pt made aware of procedure and medications given. Chest tube removed. Will await chest xray for pending discharge.
--- NOTE | 2019-02-26 13:38 | Progress Note (SOAP) ---
Subjective Date Seen by a Provider: February 26, 2019 Time Seen by a Provider: 13:00 Subjective/Events-last exam doing better, no SOB. no new cough nor sputum production. no ptx and no airleak. Objective Exam Vital Signs Date Time Temp Pulse Resp B/P (MAP) Pulse Ox O2 Delivery O2 Flow Rate FiO2 02/26/19 13:00 61 35 96/63 (74) 93 Nasal Cannula 2.00 02/26/19 12:47 62 02/26/19 12:00 66 15 103/71 (82) 93 Nasal Cannula 2.00 02/26/19 11:47 98.4 02/26/19 11:00 73 38 125/51 (75) 95 Nasal Cannula 2.00 02/26/19 10:00 68 23 106/65 (79) 94 Nasal Cannula 2.00 02/26/19 09:00 68 29 122/72 (89) 95 Nasal Cannula 2.00 02/26/19 08:00 97.3 02/26/19 08:00 Nasal Cannula 2.00 02/26/19 08:00 68 20 116/79 (91) 95 Nasal Cannula 2.00 02/26/19 07:00 65 02/26/19 07:00 65 14 113/69 (84) 92 Nasal Cannula 2.00 02/26/19 06:00 64 26 120/77 (91) 94 Nasal Cannula 2.00 02/26/19 05:00 61 20 114/66 (82) 94 Nasal Cannula 2.00 02/26/19 04:00 98.6 02/26/19 04:00 73 18 125/78 (94) 96 Nasal Cannula 2.00 02/26/19 04:00 Nasal Cannula 2.00 02/26/19 03:00 59 27 129/84 (99) 98 Nasal Cannula 2.00 02/26/19 02:00 65 14 121/71 (88) 97 Nasal Cannula 2.00 02/26/19 01:00 60 02/26/19 01:00 60 26 112/74 (87) 95 Nasal Cannula 2.00 02/26/19 00:00 67 19 137/73 (94) 99 Nasal Cannula 2.00 02/26/19 00:00 Nasal Cannula 2.00 02/26/19 00:00 98.9 02/25/19 23:00 54 22 118/86 (97) 96 Nasal Cannula 2.00 02/25/19 22:00 59 20 127/84 (98) 95 Nasal Cannula 2.00 02/25/19 21:00 63 30 121/72 (88) 95 Nasal Cannula 2.00 02/25/19 20:00 Nasal Cannula 2.00 02/25/19 20:00 66 22 139/97 (111) 96 Nasal Cannula 2.00 02/25/19 20:00 97.9 02/25/19 19:01 74 02/25/19 19:00 74 26 138/86 (103) 94 Nasal Cannula 2.00 02/25/19 17:19 Nasal Cannula 2.00 02/25/19 17:00 75 35 142/82 (102) 96 Nasal Cannula 2.00 02/25/19 16:00 Nasal Cannula 2.00 02/25/19 16:00 65 19 137/81 (99) 96 Nasal Cannula 2.00 02/25/19 15:00 65 17 123/66 (85) 94 Nasal Cannula 2.00 02/25/19 14:00 77 30 132/83 (99) 95 Nasal Cannula 2.00 I & O 02/26/19 07:00 Intake Total 970 ml Output Total 300 ml Balance 670 ml Capillary Refill : Less Than 3 Seconds General Appearance: No Apparent Distress HEENT: PERRL/EOMI Neck: Full Range of Motion Respiratory: Chest Non Tender, Normal Breath Sounds, Wheezing Cardiovascular: Regular Rate, Rhythm Gastrointestinal: normal bowel sounds, non tender, soft Extremity: Normal Capillary Refill Neurologic/Psychiatric: Alert, Oriented x3 Skin: Normal Color Lymphatic: No Adenopathy Results Lab Laboratory Tests 02/26/19 03:25: White Blood Count 10.4, Red Blood Count 4.58, Hemoglobin 13.8, Hematocrit 41, Mean Corpuscular Volume 89, Mean Corpuscular Hemoglobin 30, Mean Corpuscular Hemoglobin Concent 34, Red Cell Distribution Width 12.4, Platelet Count 323, Mean Platelet Volume 10.7H, Neutrophils (%) (Auto) 68, Lymphocytes (%) (Auto) 22 , Monocytes (%) (Auto) 8, Eosinophils (%) (Auto) 3, Basophils (%) (Auto) 0, Neutrophils # (Auto) 7.1, Lymphocytes # (Auto) 2.2, Monocytes # (Auto) 0.8, Eosinophils # (Auto) 0.3, Basophils # (Auto) 0.0, Sodium Level 139, Potassium Level 3.8, Chloride Level 107, Carbon Dioxide Level 23, Anion Gap 9, Blood Urea Nitrogen 13, Creatinine 0.71, Estimat Glomerular Filtration Rate > 60, BUN/ Creatinine Ratio 18, Glucose Level 101, Calcium Level 8.9, Magnesium Level 1.7L Microbiology 02/24/19 MRSA Screen - Final, Complete MRSA not isolated Assessment/Plan Assessment/Plan Assess & Plan/Chief Complaint spontaneous left ptx s/p ct placement. no ptx, no airleak. will remove cath then get f/u cxr. Clinical Quality Measures AMI/AHF: ASA po Prior to arrival: No DVT/VTE Risk/Contraindication: Risk Factor Score Per Nursin RFS Level Per Nursing on Admit: 3=High DIANNE BUSTAMANTE MD February 26, 2019 13:38
--- NOTE | 2019-02-26 13:42 | Discharge Inst-Surgical ---
D/C Lap Instructions-DIANNA Follow Up Appt in 2 weeks cxr 1 week Activity as tolerated Regular Diet Symptoms to Report: Fever over 101 degree F, Nausea/Vomiting Infection Signs and Symptoms to report: Increased redness, Foul odor of wound, Increased drainage Bathing instructions: May shower Operative Area Clean/Dry; Keep incision clean/dry If any problems/questions: Contact your physician or go to Emergency Room DIANNE BUSTAMANTE MD February 26, 2019 13:42
--- NOTE | 2019-02-26 16:14 | Diagnostic Imaging Report ---
INDICATION: Pneumothorax, post tube removal. TECHNIQUE: Single view chest 2:58 PM. CORRELATION STUDY: 02/26/2019 FINDINGS: Small caliber left-sided thoracostomy tube has been removed. There is a persistent very small residual left apical pneumothorax present. Likely relatively stable. Some atelectasis at the left lung base with a small left pleural effusion. Right lung stable. Heart size and mediastinum stable. Gaseous distention of the stomach in the left upper quadrant. IMPRESSION: 1. Interval left chest tube removal. Small left apical pneumothorax, unchanged. 2. Areas of atelectasis suggested about the lung bases. Dictated by: Dictated on workstation # [id number]
--- NOTE | 2019-02-27 15:03 | Physician Query-Final Dx ---
MACKENZIE CASAS 02/27/19 1503: Final Diagnosis Give Final Diagnosis Please give Final Diagnosis DIANNE BUSTAMANTE MD 02/27/194: Final Diagnosis Give Final Diagnosis spontaneous left pneumothorax secondary to COPD MACKENZIE CASAS February 27, 2019 15:03 DIANNE BUSTAMANTE MD February 27, 2019 20:34
== END 2019-02-26 18:32 | disposition home or self-care (01) | DRG 200 ==
LOC: EDUNIT# 10:58 → ER 10:59 → ICU 12:02
PROVIDERS: ADMIT Surgery; ATTEND Surgery
PROC: 0W9B30Z Drainage of Left Pleural Cavity with Drainage Device, Percutaneous Approach (ICD-10-PCS; principal; 2019-02-24)
PROC: 0W9B30Z Drainage of Left Pleural Cavity with Drainage Device, Percutaneous Approach (ICD-10-PCS; 2019-02-25)
DX: J93.11 Primary spontaneous pneumothorax (principal); T85.628A Displacement of other specified internal prosthetic devices, implants and grafts, initial encounter; J44.9 Chronic obstructive pulmonary disease, unspecified; I25.10 Atherosclerotic heart disease of native coronary artery without angina pectoris; I25.2 Old myocardial infarction; I10 Essential (primary) hypertension; I25.5 Ischemic cardiomyopathy; E78.00 Pure hypercholesterolemia, unspecified; E78.5 Hyperlipidemia, unspecified; K21.0 Gastro-esophageal reflux disease with esophagitis; K44.9 Diaphragmatic hernia without obstruction or gangrene; E03.9 Hypothyroidism, unspecified; M19.91 Primary osteoarthritis, unspecified site; F32.9 Major depressive disorder, single episode, unspecified; H93.19 Tinnitus, unspecified ear; Z86.11 Personal history of tuberculosis; Z95.5 Presence of coronary angioplasty implant and graft; Z85.41 Personal history of malignant neoplasm of cervix uteri; Z87.891 Personal history of nicotine dependence; Z88.8 Allergy status to other drugs, medicaments and biological substances
CPT/HCPCS: 36415; 71045; 80048; 80053; 80061; 83735; 83874; 84439; 84443; 84484; 85025; 85379; 85610; 85730; 87081; 93005; 93041

== ENCOUNTER → 2019-02-27 | Outpatient (CLI) | payer BC, MEDICARE ==
[~2019-02-27] MED LIST changes: +ASPI-983 PO; +ATOR40TA70 PO; +BUDE10.2 IH; +CETI10TA17 PO; +LEVO112T55 PO; +PANT40TA3 PO; +RT-ALBUINH IH
--- NOTE | 2019-02-27 17:32 | Diagnostic Imaging Report ---
INDICATION: Back pain, chest pain, and fever. PA and lateral chest obtained at 03:59 p.m. and is compared to yesterday. Compared to the prior study, the small left apical pneumothorax remains present and has not changed. There is some mild left basilar atelectasis. There are chronic-appearing increased interstitial markings. There is no significant-sized pleural effusion. IMPRESSION: Small left apical pneumothorax unchanged compared to yesterday. Mild left basilar atelectasis again noted. There is no new abnormality. Dictated by: Dictated on workstation # [id number]
== END ==
LOC: RAD 15:48
PROVIDERS: ATTEND Surgery
DX: J93.83 Other pneumothorax (principal); J98.11 Atelectasis; R50.9 Fever, unspecified
CPT/HCPCS: 71046

== ENCOUNTER → 2019-03-05 | Outpatient (CLI) | payer BC ==
--- NOTE | 2019-03-05 12:16 | Diagnostic Imaging Report ---
INDICATION: Continued shortness of breath and some chest pain.. TECHNIQUE: Two view chest 9:09 AM CORRELATION STUDY: 02/27/2019 FINDINGS: No appreciable pneumothorax at followup. Small left pleural effusion stable to perhaps minimally decreased in size. Lung collins overall are clear. No infiltrate. Heart size, mediastinum and vasculature within normal limits. IMPRESSION: 1. No definitive pneumothorax at followup. Small left pleural effusion stable to perhaps minimally decreased in size. Dictated by: Dictated on workstation # [id number]
== END ==
LOC: RAD 08:59
PROVIDERS: ATTEND Surgery
DX: J90 Pleural effusion, not elsewhere classified (principal)
CPT/HCPCS: 71046

== ENCOUNTER → 2019-09-17 | Outpatient (CLI) | payer BC ==
[~2019-09-17] VITALS: Ht 165 cm; Wt 67.0 kg
[~2019-09-17] MED LIST changes: +CATHETER FLUSH 10 ML SYR IV PRN; +REGADENOSON 0.4 MG/5 ML SYR (LEXISCAN) IV ONE
--- NOTE | 2019-09-23 12:09 | STRESS TEST ---
DATE OF SERVICE: 09/17/2019 RESTING AND POST REGADENOSON TECHNETIUM-99M TETROFOSMIN SPECT CT IMAGING ORDERING PHYSICIAN: Kayla Calvert APRN PRIMARY PHYSICIAN: [facility]. CLINICAL DIAGNOSIS: Coronary artery disease. Baseline images were carried out after injection of 10.65 mCi of technetium-99m Tetrofosmin. This was followed by 0.4 mg regadenoson and 28.8 mCi of technetium-99m Tetrofosmin for stress imaging. The electrocardiogram showed sinus rhythm at baseline. Isolated premature ventricular contractions were seen. The electrocardiogram did not change significantly with regadenoson infusion. The patient tolerated the procedure well. Review of images at rest and following stress does not indicate significant perfusion defects consistent with any significant myocardial ischemia or infarction. Gated images show normal global left ventricular systolic function, normal regional wall motion. Left ventricular ejection fraction is calculated to be 64%. Left ventricular end diastolic volume is 47 mL. TID is absent (1.05). CONCLUSIONS: 1. No evidence of any significant myocardial ischemia or infarction is seen. 2. Normal regional wall motion. 3. Normal global left ventricular systolic function with a calculated ejection fraction of 64%. Job ID: [id number] DocumentID: [id number] Dictated Date: 09/23/2019 09:00:19 Cuffer Date: 09/23/2019 12:09:18 Dictated By: RHONA TANNER MD, MA, FACP, FACC,
== END ==
LOC: CARD 07:51
PROVIDERS: ATTEND Nurse Practitioner Family
DX: I25.10 Atherosclerotic heart disease of native coronary artery without angina pectoris (principal); I78.9 Disease of capillaries, unspecified; R06.09 Other forms of dyspnea; E78.5 Hyperlipidemia, unspecified; I35.0 Nonrheumatic aortic (valve) stenosis
CPT/HCPCS: 78452; 93017; 93306

== ENCOUNTER 2022-04-02 20:36 | Emergency (ER) | payer MEDICARE ==
[~2022-04-02] VITALS: Ht 162.5 cm; Wt 67.4 kg
[~2022-04-02 20:36] MED LIST changes: +ASPI-1238 PO; -ASPI-983 PO; -CATHETER FLUSH 10 ML SYR IV PRN; -PANT40TA3 PO; +PANT40TA52 PO; -REGADENOSON 0.4 MG/5 ML SYR (LEXISCAN) IV ONE
[2022-04-02 21:14] LABS: BASOPHILS # (AUTO) 0.1 10^3/uL (0.0-0.1); BASOPHILS % (AUTO) 0 % (0-10); EOSINOPHILS # (AUTO) 0.2 10^3/uL (0.0-0.3); EOSINOPHILS % (AUTO) 1 % (0-10); HEMATOCRIT 45 % (35-52); HEMOGLOBIN 15.2 g/dL (11.5-16.0); LYMPHOCYTES # (AUTO) 2.3 10^3/uL (1.0-4.0); LYMPHOCYTES % (AUTO) 15 % (12-44); MEAN CORPUSCULAR HEMOGLOBIN 30 pg (25-34); MEAN CORPUSCULAR HGB CONC 34 g/dL (32-36); MEAN CORPUSCULAR VOLUME 88 fL (80-99); MONOCYTES # (AUTO) 1.2 10^3/uL (0.0-1.0); MONOCYTES % (AUTO) 8 % (0-12); NEUTROPHILS # (AUTO) 11.8 10^3/uL (1.8-7.8); NEUTROPHILS % (AUTO) 76 % (42-75); PLATELET COUNT 443 10^3/uL (130-400); WHITE BLOOD COUNT 15.6 10^3/uL (4.3-11.0)
[2022-04-02] MEDS ORDERED: LACTATED RINGERS 1,000 ML IV ONE (21:15)
[2022-04-02 21:24] LABS: ALBUMIN 3.8 GM/DL (3.2-4.5); POTASSIUM 3.9 MMOL/L (3.6-5.0)
[2022-04-02 21:25] LABS: CALCIUM 9.4 MG/DL (8.5-10.1)
[2022-04-02 21:26] LABS: TOTAL PROTEIN 7.7 GM/DL (6.4-8.2)
[2022-04-02 21:30] LABS: CREATININE SERUM 0.74 MG/DL (0.60-1.30)
[2022-04-02 21:36] LABS: EOSINOPHILS % (MANUAL) 2 %; LYMPHOCYTES % (MANUAL) 11 %; MONOCYTES % (MANUAL) 9 %; NEUTROPHILS % (MANUAL) 78 %; RBC MORPH NORMAL
--- NOTE | 2022-04-02 21:44 | ED Cough/URI ---
General Chief Complaint: COVID19 Suspect/Confirmed Stated Complaint: FEVER/CONGESTION/HEADACHE/ELEV HR Nursing Triage Note: Pt arrival to ER with complaint of [place]NE/Congestion/Tachycardia this past week. Pt became concerned when her HR became over 100. Pt has past heart attack so she wanted to be checked out. Pt denies being around anyone sick, and denies being covid vaccinated. Source: patient Exam Limitations: no limitations History of Present Illness Date Seen by Provider: Apr 02, 2022 Time Seen by Provider: 20:49 Initial Comments Patient to the ER by private conveyance from home with chief complaint of the past week has been dealing outpatient with what she thought was a cold or sinus infection. She is had nasal congestion, dry nonproductive cough that is turned to a productive cough the last 2 days. She has had body aches and fever with a T-max of 99.8, malaise and one episode of nausea earlier today. She is not having any chest pain, shortness of air or nausea now but she became concerned when she checked her heart rate and it was 140 after walking around. She has no history of SVT or atrial fibrillation. She has had poor oral intake and poor fluid intake for the past several days. Allergies and Home Medications Allergies Coded Allergies: cephalexin (Verified Allergy, Unknown, HIVES, 08/04/10) warfarin (Unverified Allergy, Unknown, 10/15/14) codeine (Verified Adverse Reaction, Unknown, MADE iLL, 08/04/10) Patient Home Medication List Home Medication List Reviewed: Yes Albuterol Sulfate (Proair Hfa) 1 Puff Puff, 2 PUFF IH Q6H PRN for SHORTNESS OF BREATH, (Reported) Entered as Reported by: REG SCHULTZ on 02/25/19 1004 Aspirin (Aspirin EC) 81 Mg Tablet.dr, 81 MG PO HS, (Reported) Entered as Reported by: REG SCHULTZ on 02/25/19 0959 Atorvastatin Calcium (Atorvastatin Calcium) 40 Mg Tablet, 40 MG PO HS, (Reported) Entered as Reported by: REG SCHULTZ on 02/25/19 0956 Cetirizine HCl (Cetirizine HCl) 10 Mg Tablet, 10 MG PO DAILY, (Reported) Entered as Reported by: REG SCHULTZ on 02/25/19 0959 Levothyroxine Sodium (Levothyroxine Sodium) 112 Mcg Tablet, 112 MCG PO HS, (Reported) Entered as Reported by: REG SCHULTZ on 02/25/19955 Pantoprazole Sodium (Pantoprazole Sodium) 40 Mg Tablet.dr, 40 MG PO DAILY, (Reported) Entered as Reported by: REG SCHULTZ on 02/25/19955 Review of Systems Review of Systems Constitutional: chills, fever, malaise EENTM: No ear discharge, No ear pain Respiratory: cough, phlegm, short of breath Cardiovascular: No chest pain, No edema, No Hx of Intervention Gastrointestinal: No abdominal pain; loss of appetite Genitourinary: No discharge, No dysuria Musculoskeletal: No back pain, No joint pain All Other Systems Reviewed Negative Unless Noted: Yes Past Buwskgc-Hpmkwt-Hezxqn Hx Patient Social History Tobacco type used: Cigarettes Smoking Status: Former Smoker Use of E-Cig and/or Vaping dev: No Substance use?: No Alcohol Use?: No Pt feels they are or have been: No Immunizations Up To Date Tetanus Booster (TDap): More than 5yrs Influenza Vaccine Up-to-Date: No; Not Current Past Medical History Surgeries: Yes (HYSTERECTOMY, LUMPHECTOMY, BLADDER TUCK) Bladder Surgery, Coronary Stent, Hysterectomy Respiratory: Yes (HX TB) Pneumonia, Chronic Bronchitis, COPD Cardiac: Yes Coronary Artery Disease, Heart Attack, High Cholesterol Neurological: No 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 Disorders: No Female 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 Sexually Transmitted Disease: No HIV/AIDS: No Kidney Infection Gastrointestinal: Yes Gastroesophageal Reflux, Hiatal Hernia Musculoskeletal: Yes Arthritis Endocrine: Yes Hypothyroidsim Cataract, Tinnitis Loss of Vision: Denies Hearing Impairment: Denies Cancer: Yes Cervical Psychosocial: Yes Depression Integumentary: No Blood Disorders: No Adverse Reaction/Blood Tranf: No Family Medical History Alcoholism 19 FATHER Arthritis Cardiovascular disease 19 MOTHER Completed stroke 19 MOTHER Diabetes mellitus 19 MOTHER Drug abuse G8 BROTHER G8 BROTHER Hypertension 19 MOTHER Myocardial infarction 19 MOTHER Psychosocial problem 19 MOTHER G8 SISTER G8 SISTER Respiratory disorder No Family History of: AIDS Abdominal aortic aneurysm Ad's disease Alzheimer's disease Aphasia Asthma Cancer of mouth Cataracts Colon cancer Congenital disease Congenital heart disease Coronary thrombosis Cystic fibrosis Deafness or hearing loss Dementia Dysphasia Fibrocystic disease of breast Gastroenteritis Glaucoma Headache disorder Hypercholesterolemia Infertility Kidney disease Neoplasm Not obtainable due to adoption Osteoporosis Parkinson's disease Prostate cancer Seizure disorder Severe allergy Thyroid disease Tuberculosis Visual disorder Physical Exam Vital Signs - First Documented 04/02/22 21:12 Temp 37.1 Pulse 121 Resp 24 B/P (MAP) 150/88 (108) Pulse Ox 94 O2 Delivery Room Air Capillary Refill : Less Than 3 Seconds Height: 5'4.00" Weight: 159lbs. 6.0oz. 72.376586qm; 25.00 BMI Method:Stated General Appearance: WD/WN, no apparent distress Eyes: Bilateral Eye Normal Inspection, Bilateral Eye PERRL, Bilateral Eye EOMI HEENT: PERRL/EOMI, normal ENT inspection, TMs normal, pharynx normal Neck: non-tender, full range of motion, supple Respiratory: chest non-tender, lungs clear, normal breath sounds, no respiratory distress, no accessory muscle use Cardiovascular: normal peripheral pulses, regular rate, rhythm Gastrointestinal: normal bowel sounds, non tender Extremities: non-tender, normal inspection, normal capillary refill Neurologic/Psychiatric: alert, normal mood/affect, oriented x 3 Skin: normal color, warm/dry Progress/Results/Core Measures Suspected Sepsis SIRS Temperature: Pulse: 121 Respiratory Rate: 24 Laboratory Tests 04/02/22 21:01: White Blood Count 15.6H Blood Pressure 150 /88 Mean: 108 Laboratory Tests 04/02/22 21:01: Creatinine 0.74, Platelet Count 443H, Total Bilirubin 2.0H Results/Orders Lab Results Laboratory Tests Test 04/02/22 21:01 04/02/22 21:05 Range/Units White Blood Count 15.6 H 4.3-11.0 10^3/uL Red Blood Count 5.05 3.80-5.11 10^6/uL Hemoglobin 15.2 11.5-16.0 g/dL Hematocrit 45 35-52 % Mean Corpuscular Volume 88 80-99 fL Mean Corpuscular Hemoglobin 30 25-34 pg Mean Corpuscular Hemoglobin Concent 34 32-36 g/dL Red Cell Distribution Width 12.0 10.0-14.5 % Platelet Count 443 H 130-400 10^3/uL Mean Platelet Volume 10.0 9.0-12.2 fL Immature Granulocyte % (Auto) 0 % Neutrophils (%) (Auto) 76 H 42-75 % Lymphocytes (%) (Auto) 15 12-44 % Monocytes (%) (Auto) 8 0-12 % Eosinophils (%) (Auto) 1 0-10 % Basophils (%) (Auto) 0 0-10 % Neutrophils # (Auto) 11.8 H 1.8-7.8 10^3/uL Lymphocytes # (Auto) 2.3 1.0-4.0 10^3/uL Monocytes # (Auto) 1.2 H 0.0-1.0 10^3/uL Eosinophils # (Auto) 0.2 0.0-0.3 10^3/uL Basophils # (Auto) 0.1 0.0-0.1 10^3/uL Immature Granulocyte # (Auto) 0.1 0.0-0.1 10^3/uL Neutrophils % (Manual) 78 % Lymphocytes % (Manual) 11 % Monocytes % (Manual) 9 % Eosinophils % (Manual) 2 % Blood Morphology Comment NORMAL Sodium Level 136 135-145 MMOL/L Potassium Level 3.9 3.6-5.0 MMOL/L Chloride Level 103 98-107 MMOL/L Carbon Dioxide Level 18 L 21-32 MMOL/L Anion Gap 15 H 5-14 MMOL/L Blood Urea Nitrogen 10 7-18 MG/DL Creatinine 0.74 0.60-1.30 MG/DL Estimat Glomerular Filtration Rate 87 BUN/Creatinine Ratio 14 Glucose Level 115 H 70-105 MG/DL Calcium Level 9.4 8.5-10.1 MG/DL Corrected Calcium 9.6 8.5-10.1 MG/DL Total Bilirubin 2.0 H 0.1-1.0 MG/DL Aspartate Amino Transf (AST/SGOT) 24 5-34 U/L Alanine Aminotransferase (ALT/SGPT) 20 0-55 U/L Alkaline Phosphatase 90 40-136 U/L C-Reactive Protein High Sensitivity 12.52 H 0.00-0.50 MG/DL Total Protein 7.7 6.4-8.2 GM/DL Albumin 3.8 3.2-4.5 GM/DL SARS-CoV-2 RNA (RT-PCR) Not Detected Not Detecte My Orders Orders - DENYS NEWMAN Ed Iv/Invasive Line Start (04/02/22 21:04) Lactated Ringers (Lr 1000 Ml Iv Solution (04/02/22 21:15) Cbc With Automated Diff (04/02/22 21:04) Comprehensive Metabolic Panel (04/02/22 21:04) Hs C Reactive Protein (04/02/22 21:04) Covid 19 Inhouse Test (04/02/22 21:04) Chest 1 View, Ap/Pa Only (04/02/22 21:04) Manual Differential (04/02/22 21:01) Medications Given in ED Current Medications Medications Dose Ordered Sig/Rojas Route Start Time Stop Time Status Last Admin Dose Admin Lactated Ringer's 1,000 ml @ 0 mls/hr Q0M ONCE IV 04/02/22 21:15 04/02/22 21:16 DC 04/02/22 21:22 999 MLS/HR Vital Signs/I&O 04/02/22 04/02/22 21:12 21:12 Temp 37.1 Pulse 121 Resp 24 B/P (MAP) 150/88 (108) Pulse Ox 94 O2 Delivery Room Air Room Air Capillary Refill : Less Than 3 Seconds Blood Pressure Mean: 108 Progress Note : Time: 22:21 Progress Note After liter of fluids the patient's heart rate is down to 85-90, sinus rhythm on the monitor with good vital signs. No fever. Patient states she feels much better after a liter of fluids. She was grateful for the care and return precautions were given. Diagnostic Imaging Diagonstic Imaging: Xray Comments NAME: MACKENZIE STANLEY MED REC#: [id number] PT STATUS: REG ER : 1950 PHYSICIAN: DENYS NEWMAN MD ADMIT DATE: 04/02/22/ER Draft Date of Exam:04/02/22 CHEST 1 VIEW, AP/PA ONLY INDICATION: Cough and congestion with fever. EXAMINATION: Chest, 04/02/2022. COMPARISON: 02/26/2019. FINDINGS: Heart and pulmonary vasculature are normal. There is bibasilar atelectasis. No infiltrates, effusions or pneumothorax. IMPRESSION: Bibasilar atelectasis; otherwise, negative chest. Dictated on workstation # [id number] Dict: 04/02/222206 Trans: 04/02/222213 [facility] [id number] Interpreted by: ROSY JONES MD Electronically signed by: Reviewed: Reviewed by Me Departure Impression Primary Impression: Upper respiratory infection Qualified Codes: J06.9 - Acute upper respiratory infection, unspecified Additional Impression: Dehydration Disposition: 01 HOME, SELF-CARE Condition: Stable Departure-Patient Inst. Decision time for Depature: 22:25 Referrals: [facility] (PCP/Family) Primary Care Physician Patient Instructions: Viral Upper Respiratory Infection, Adult (DC), Dehydration, Adult ED Add. Discharge Instructions: Drink plenty of fluids. Get plenty of rest. Return to the ER promptly if your symptoms worsen. All discharge instructions reviewed with patient and/or family. Voiced understanding. DENYS NEWMAN Apr 02, 2022 21:43
--- NOTE | 2022-04-02 22:15 | Diagnostic Imaging Report ---
INDICATION: Cough and congestion with fever. EXAMINATION: Chest, 04/02/2022. COMPARISON: 02/26/2019. FINDINGS: Heart and pulmonary vasculature are normal. There is bibasilar atelectasis. No infiltrates, effusions or pneumothorax. IMPRESSION: Bibasilar atelectasis; otherwise, negative chest. Dictated by: Dictated on workstation # [id number]
[2022-04-02 22:30] VITALS: BP 147/98
== END 2022-04-02 22:35 | disposition home or self-care (01) ==
LOC: EDUNIT# 20:36 → ER 20:38
DX: J06.9 Acute upper respiratory infection, unspecified (principal); E86.0 Dehydration; Z87.891 Personal history of nicotine dependence; Z20.822 Contact with and (suspected) exposure to COVID-19; Z28.310 Unvaccinated for COVID-19
CPT/HCPCS: 36415; 71045; 80053; 85007; 85027; 86141; 87636

== ENCOUNTER → 2022-04-22 | Outpatient (CLI) | payer MEDICARE | LOC: CARD 12:00 | PROVIDERS: ATTEND Nurse Practitioner Family | DX: I35.1 Nonrheumatic aortic (valve) insufficiency (principal); I25.5 Ischemic cardiomyopathy | CPT/HCPCS: 93225; 93226; 93306 ==

== ENCOUNTER → 2022-05-16 | Outpatient (CLI) | payer MEDICARE ==
[~2022-05-16] MED LIST changes: +REGADENOSON 0.4 MG/5 ML SYR (LEXISCAN) IV ONE
[2022-05-16] MEDS: CATHETER FLUSH 10 ML SYR IVP PRN ×2 (08:14→09:24)
[2022-05-16 09:19] VITALS: BP 168/90
--- NOTE | 2022-05-16 11:35 | Cardiology Stress Test Report ---
Stress Test Report Date of Procedure/Referring: Date of Procedure: May 16, 2022 [facility] Admitting Physician Admitting Physician: Attending Physician: Kayla Calvert Indications: CAD Baseline Heart Rate: 71 Baseline Blood Pressure: Blood Pressure Systolic: 168 Blood Pressure Diastolic: 90 Baseline Vitals Vital Signs Date Time Temp Pulse Resp B/P (MAP) Pulse Ox O2 Delivery O2 Flow Rate FiO2 05/16/22 09:19 71 16 168/90 (116) 98 Room Air Baseline EKG: Baseline EKG: NSR Summary After explaining the procedure to the patient, she signed a consent and then brought to the stress nuclear laboratory. Patient received 0.4 mg Lexiscan for stress test, ECG, heart rate and blood pressure were monitored continuously. Resting and stress dose of radio tracer were injected, imaging was acquired and reviewed in short axis, horizontal long axis and vertical long axis views. TID: 1.01 SSS: 2 SDS: 2 EF: 67 1. Patient tolerated Lexiscan well 2. Transient ventricular bigeminy noted on EKG during test 3. Breast attenuation with typical female pattern, no significant ischemia or infarction on SPECT images 4. Normal left ventricular size, ejection fraction 67% Copy Copies To 1: [facility] ROYA BUSTAMANTE MD May 16, 2022 11:35
== END ==
LOC: CARD 08:15
PROVIDERS: ATTEND Nurse Practitioner Family
DX: I25.10 Atherosclerotic heart disease of native coronary artery without angina pectoris (principal)
CPT/HCPCS: 78452; 93017; A9502

== ENCOUNTER 2023-01-02 21:45 | Inpatient (IN) | payer MEDICARE ==
[~2023-01-02] VITALS: Ht 165 cm; Wt 68.2 kg
[~2023-01-02 21:45] MED LIST changes: +ALBU8.5H6 IH; -REGADENOSON 0.4 MG/5 ML SYR (LEXISCAN) IV ONE; -RT-ALBUINH IH
[2023-01-02] MEDS ORDERED: dilTIAZem DRIP PRE-MIX 125 ML IV SCH (22:15)
[2023-01-02 22:18] LABS: BASOPHILS # (AUTO) 0.1 10^3/uL (0.0-0.1); BASOPHILS % (AUTO) 0 % (0-10); EOSINOPHILS # (AUTO) 0.5 10^3/uL (0.0-0.3); EOSINOPHILS % (AUTO) 3 % (0-10); HEMATOCRIT 46 % (35-52); HEMOGLOBIN 15.6 g/dL (11.5-16.0); LYMPHOCYTES # (AUTO) 3.1 10^3/uL (1.0-4.0); LYMPHOCYTES % (AUTO) 19 % (12-44); MEAN CORPUSCULAR HEMOGLOBIN 30 pg (25-34); MEAN CORPUSCULAR HGB CONC 34 g/dL (32-36); MEAN CORPUSCULAR VOLUME 88 fL (80-99); MEAN PLATELET VOLUME 9.9 fL (9.0-12.2); MONOCYTES # (AUTO) 1.2 10^3/uL (0.0-1.0); MONOCYTES % (AUTO) 8 % (0-12); NEUTROPHILS # (AUTO) 11.4 10^3/uL (1.8-7.8); NEUTROPHILS % (AUTO) 70 % (42-75); PLATELET COUNT 475 10^3/uL (130-400); WHITE BLOOD COUNT 16.4 10^3/uL (4.3-11.0)
[2023-01-02 22:30] LABS: ALBUMIN 3.6 GM/DL (3.2-4.5); POTASSIUM 3.6 MMOL/L (3.6-5.0)
[2023-01-02 22:33] LABS: TOTAL PROTEIN 7.2 GM/DL (6.4-8.2)
[2023-01-02 22:34] LABS: BILIRUBIN,TOTAL 2.3 MG/DL (0.1-1.0)
--- NOTE | 2023-01-02 22:34 | ED Cardiac General ---
History of Present Illness General Chief Complaint: Cardiac/General Problems Stated Complaint: HIGH HEART RATE Nursing Triage Note: Pt presents with c/o rapid heart rate that started approx 1 hour prior to arrival. She states she was sick with a viral illness last week and finished a steroid prescription last monday. Pt states she's had a rapid heart rate in the past, but does not think she's ever been diagnosed with a-fib before. Pt reports a hx of COPD, also c/o sinus and chest congestion for 1 week. Source: patient Exam Limitations: no limitations History of Present Illness Date Seen by Provider: Jan 02, 2023 Time Seen by Provider: 22:15 Initial Comments This is 72-year-old woman presents to the emergency room with significant tachycardia. She reports having a viral illness that started last week causing cough. She was started on prednisone after being seen in the [facility] clinic. She reportedly was swabbed for strep and COVID which were both negative. She has a lot of nasal and sinus congestion. She was placed on nasal cannula as her oxygen saturations were in the high 80s. She reports some pleuritic chest pain with cough and deep breathing. She appears to be in atrial flutter with RVR. She denies any known history of arrhythmia but does have ischemic cardiomyopathy and history of stents. Dr. Cortez is her rn hemo dialysis. Dr. Huitron is her primary care provider. Allergies and Home Medications Allergies Coded Allergies: cephalexin (Verified Allergy, Unknown, HIVES, 08/04/10) warfarin (Unverified Allergy, Unknown, 10/15/14) codeine (Verified Adverse Reaction, Unknown, MADE iLL, 08/04/10) Patient Home Medication List Home Medication List Reviewed: Yes Albuterol Sulfate (Ventolin Hfa) 1 Puff Puff, 2 PUFF IH Q6H PRN for SHORTNESS OF BREATH, (Reported) Entered as Reported by: REG SCHULTZ on 02/25/19 1004 Aspirin (Aspirin EC) 81 Mg Tablet.dr, 81 MG PO HS, (Reported) Entered as Reported by: REG SCHULTZ on 02/25/19 0959 Atorvastatin Calcium (Atorvastatin Calcium) 40 Mg Tablet, 40 MG PO HS, (Reported) Entered as Reported by: REG SCHULTZ on 02/25/19 0956 Cetirizine HCl (Cetirizine HCl) 10 Mg Tablet, 10 MG PO DAILY, (Reported) Entered as Reported by: REG SCHULTZ on 02/25/19 0959 Levothyroxine Sodium (Levothyroxine Sodium) 112 Mcg Tablet, 112 MCG PO HS, (Reported) Entered as Reported by: REG SCHULTZ on 02/25/19 09 Pantoprazole Sodium (Pantoprazole Sodium) 40 Mg Tablet.dr, 40 MG PO DAILY, (Reported) Entered as Reported by: REG SCHULTZ on 02/25/19 09 Review of Systems Review of Systems Constitutional: no symptoms reported EENTM: No Symptoms Reported Respiratory: See HPI Cardiovascular: See HPI Gastrointestinal: No Symptoms Reported Genitourinary: No Symptoms Reported Musculoskeletal: no symptoms reported Skin: no symptoms reported Psychiatric/Neurological: No Symptoms Reported Endocrine: No Symptoms Reported Hematologic/Lymphatic: No Symptoms Reported Past Exnpytj-Xikwad-Igmccy Hx Patient Social History Tobacco Use?: No Smoking Status: Former Smoker Use of E-Cig and/or Vaping dev: No Substance use?: No Alcohol Use?: No Immunizations Up To Date Tetanus Booster (TDap): More than 5yrs Influenza Vaccine Up-to-Date: Yes; Up-to-Date Past Medical History Surgeries: Yes (HYSTERECTOMY, LUMPHECTOMY, BLADDER TUCK, cervical cryotherapy) Bladder Surgery, Coronary Stent, Hysterectomy Respiratory: Yes (HX TB) Pneumonia, Chronic Bronchitis, COPD Cardiac: Yes Cardiomyopathy (Ischemic), Coronary Artery Disease, Heart Attack, High Cholesterol Neurological: No 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 Disorders: No 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 Sexually Transmitted Disease: No HIV/AIDS: No Kidney Infection Gastrointestinal: Yes Gastroesophageal Reflux, Hiatal Hernia Musculoskeletal: Yes Arthritis Endocrine: Yes Hypothyroidsim (Graves' disease) HEENT: Yes Cataract, Tinnitis Loss of Vision: Denies Hearing Impairment: Denies Cancer: Yes Cervical Did You Recieve Any Treatments: Yes What Type of Treatment Did You: Other (Cryotherapy) Psychosocial: Yes Depression Integumentary: No Blood Disorders: No Adverse Reaction/Blood Tranf: No Family Medical History Alcoholism 19 FATHER Arthritis Cardiovascular disease 19 MOTHER Completed stroke 19 MOTHER Diabetes mellitus 19 MOTHER Drug abuse G8 BROTHER G8 BROTHER Hypertension 19 MOTHER Myocardial infarction 19 MOTHER Psychosocial problem 19 MOTHER G8 SISTER G8 SISTER Respiratory disorder No Family History of: AIDS Abdominal aortic aneurysm [place]'s disease Alzheimer's disease Aphasia Asthma Cancer of mouth Cataracts Colon cancer Congenital disease Congenital heart disease Coronary thrombosis Cystic fibrosis Deafness or hearing loss Dementia Dysphasia Fibrocystic disease of breast Gastroenteritis Glaucoma Headache disorder Hypercholesterolemia Infertility Kidney disease Neoplasm Not obtainable due to adoption Osteoporosis Parkinson's disease Prostate cancer Seizure disorder Severe allergy Thyroid disease Tuberculosis Visual disorder Physical Exam Vital Signs Vital Signs - First Documented Capillary Refill : Less Than 3 Seconds Height, Weight, BMI Height: 5'4.00" Weight: 159lbs. 6.0oz. 72.378777aw; 25.00 BMI Method:Stated General Appearance: No Apparent Distress, WD/WN HEENT: Normal ENT Inspection Neck: Normal Inspection; No JVD Respiratory: Lungs Clear, Normal Breath Sounds, No Accessory Muscle Use Cardiovascular: No Edema Gastrointestinal: Non Tender, Soft Extremity: Normal Inspection, No Pedal Edema Neurologic/Psychiatric: Alert, Oriented x3 Skin: Normal Color, Warm/Dry Progress/Results/Core Measures Results/Orders Lab Results Laboratory Tests Test 01/02/23 22:05 Range/Units White Blood Count 16.4 H 4.3-11.0 10^3/uL Red Blood Count 5.22 H 3.80-5.11 10^6/uL Hemoglobin 15.6 11.5-16.0 g/dL Hematocrit 46 35-52 % Mean Corpuscular Volume 88 80-99 fL Mean Corpuscular Hemoglobin 30 25-34 pg Mean Corpuscular Hemoglobin Concent 34 32-36 g/dL Red Cell Distribution Width 12.3 10.0-14.5 % Platelet Count 475 H 130-400 10^3/uL Mean Platelet Volume 9.9 9.0-12.2 fL Immature Granulocyte % (Auto) 1 % Neutrophils (%) (Auto) 70 42-75 % Lymphocytes (%) (Auto) 19 12-44 % Monocytes (%) (Auto) 8 0-12 % Eosinophils (%) (Auto) 3 0-10 % Basophils (%) (Auto) 0 0-10 % Neutrophils # (Auto) 11.4 H 1.8-7.8 10^3/uL Lymphocytes # (Auto) 3.1 1.0-4.0 10^3/uL Monocytes # (Auto) 1.2 H 0.0-1.0 10^3/uL Eosinophils # (Auto) 0.5 H 0.0-0.3 10^3/uL Basophils # (Auto) 0.1 0.0-0.1 10^3/uL Immature Granulocyte # (Auto) 0.1 0.0-0.1 10^3/uL Neutrophils % (Manual) 66 % Lymphocytes % (Manual) 24 % Monocytes % (Manual) 7 % Eosinophils % (Manual) 3 % Blood Morphology Comment NORMAL Prothrombin Time 13.7 12.2-14.7 SEC INR Comment 1.0 0.8-1.4 Activated Partial Thromboplast Time 31 24-35 SEC Sodium Level 138 135-145 MMOL/L Potassium Level 3.6 3.6-5.0 MMOL/L Chloride Level 104 98-107 MMOL/L Carbon Dioxide Level 20 L 21-32 MMOL/L Anion Gap 14 5-14 MMOL/L Blood Urea Nitrogen 8 7-18 MG/DL Creatinine 0.75 0.60-1.30 MG/DL Estimat Glomerular Filtration Rate 85 BUN/Creatinine Ratio 11 Glucose Level 138 H 70-105 MG/DL Calcium Level 9.0 8.5-10.1 MG/DL Corrected Calcium 9.3 8.5-10.1 MG/DL Magnesium Level 1.9 1.6-2.4 MG/DL Total Bilirubin 2.3 H 0.1-1.0 MG/DL Aspartate Amino Transf (AST/SGOT) 25 5-34 U/L Alanine Aminotransferase (ALT/SGPT) 30 0-55 U/L Alkaline Phosphatase 92 40-136 U/L Myoglobin 28.4 10.0-92.0 NG/ML Troponin I < 0.028 <0.028 NG/ML C-Reactive Protein High Sensitivity 8.95 H 0.00-0.50 MG/DL Total Protein 7.2 6.4-8.2 GM/DL Albumin 3.6 3.2-4.5 GM/DL Free Thyroxine 1.09 0.70-1.48 NG/DL TSH [place] Testing 0.07 L 0.35-4.94 UIU/ML My Orders Orders - JOSÉ MANUEL KAPADIA MD Diltiazem Drip Pre-Mix (Cardizem Drip Pr (01/02/23 22:15) Diltiazem Injection (Cardizem Injection) (01/02/23 22:15) Cbc With Automated Diff (01/02/23 22:10) Comprehensive Metabolic Panel (01/02/23 22:10) Magnesium (01/02/23 22:10) Thyroid Analyzer (01/02/23 22:10) Ekg Tracing (01/02/23 22:10) Monitor-Rhythm Ecg Trace Only (01/02/23 22:10) Ed Iv/Invasive Line Start (01/02/23 22:10) Manual Differential (01/02/23 22:05) Chest 1 View, Ap/Pa Only (01/02/23 22:34) Protime With Inr (01/02/23 22:34) Partial Thromboplastin Time (01/02/23 22:34) O2 (01/02/23 22:34) Lipid Panel (01/03/23 06:00) Troponin I Gil (01/02/23 22:34) Free T4 (Free Thyroxine) (01/02/23 22:05) Hs C Reactive Protein (01/02/23 23:15) Myoglobin Serum (01/02/23 22:34) Ns Iv 500 Ml (Sodium Chloride 0.9%) (01/03/23 00:14) Azithromycin Tablet (Zithromax Tablet) (01/03/23 00:45) Apixaban Tablet (Eliquis Tablet) (01/03/23 00:45) Medications Given in ED Current Medications Medications Dose Ordered Sig/Rojas Route Start Time Stop Time Status Last Admin Dose Admin Diltiazem HCl 10 mg ONCE ONCE IVP 01/02/23 22:15 01/02/23 22:16 DC 01/02/23 22:27 10 MG Sodium Chloride 500 ml @ STK-MED ONCE .ROUTE 01/03/23 00:14 01/03/23 00:18 DC 01/03/23 00:20 500 MLS/HR Vital Signs/I&O 01/02/23 01/02/23 01/02/23 01/02/23 21:57 21:57 22:27 22:28 Temp 36.7 Pulse 154 149 138 Resp 20 B/P (MAP) 124/82 (96) 136/107 136/107 Pulse Ox 93 92 O2 Delivery Nasal Cannula Nasal Cannula O2 Flow Rate 1.00 1.00 Blood Pressure Mean: 117 Progress Progress Note : Progress Note Patient was started on a Cardizem bolus and drip. Heart rate was improving. Cardizem was titrated up. Dr. Phillips was consulted and agrees with admission [facility] with stroke prophylaxis with Eliquis. Labs were reviewed in their entirety and were unremarkable. Labs included CBC, CMP, magnesium, thyroid studies. Chest x-ray and EKG were also reviewed. Azithromycin was given as a precaution due to her cough and leukocytosis. No overt pneumonia was seen on chest x-ray. Initial ECG Impression Date: Jan 02, 2023 Initial ECG Impression Time: 21:55 Initial ECG Rate: 153 Initial ECG Rhythm: A Fib/Flutter Comment Atrial flutter with RVR. No diagnostic ST elevation or depression. No abnormal intervals or axis deviation. Diagnostic Imaging Diagonstic Imaging: Xray Plain Films/CT/US/NM/MRI: chest Comments NAME: MACKENZIE STANLEY MED REC#: [id number] PT STATUS: ADM IN : 1950 PHYSICIAN: JOSÉ MANUEL KAPADIA MD ADMIT DATE: 01/03/23/ICU Signed Date of Exam:01/02/23 CHEST 1 VIEW, AP/PA ONLY INDICATION: Chest pain Portable chest 10:38 PM Heart size and pulmonary vascularity are normal. Lungs are clear. There are no effusions or pneumothoraces. IMPRESSION: Negative chest Dictated by: Dictated on workstation # [id number] Dict: 01/03/23 0646 Trans: 01/03/23 0657 CV [id number] Interpreted by: JESSICA WAITE MD Electronically signed by: JESSICA WAITE MD 01/03/23 0657 Departure Communication (Admissions) Time/Spoke to Admitting Phy: 22:55 Dr. Santos Time/Spoke to Consulting Phy: 00:30 Dr. Cortez Impression Primary Impression: Atrial flutter with rapid ventricular response Additional Impression: Cough Qualified Codes: R05.1 - Acute cough Disposition: ADMITTED INPATIENT Condition: Improved Admissions Decision to Admit Reason: Admit from ER (General) Decision to Admit/Date: Jan 03, 2023 Time/Decision to Admit Time: 22:55 Departure-Patient Inst. Referrals: PHILIP HUITRON DO (PCP/Family) Primary Care Physician Copy Copies To 1: PHILIP HUITRON JOSHUA T MD Jan 02, 2023 22:34
[2023-01-02 22:36] LABS: CREATININE SERUM 0.75 MG/DL (0.60-1.30)
[2023-01-02 22:39] LABS: MAGNESIUM 1.9 MG/DL (1.6-2.4)
[2023-01-02 22:45] LABS: EOSINOPHILS % (MANUAL) 3 %; LYMPHOCYTES % (MANUAL) 24 %; MONOCYTES % (MANUAL) 7 %; NEUTROPHILS % (MANUAL) 66 %; RBC MORPH NORMAL
[2023-01-02 22:59] LABS: TSH (THYROID ANALYZER) 0.07 UIU/ML (0.35-4.94)
[2023-01-02 23:49] LABS: FREE T4 (FREE THYROXINE) 1.09 NG/DL (0.70-1.48)
[2023-01-03 00:09] LABS: PROTHROMBIN TIME PATIENT 13.7 SEC (12.2-14.7)
[2023-01-03] MEDS ORDERED: NS IV 500 ML 500 ML ONE (00:14)
[2023-01-03] MEDS ORDERED: AZITHROMYCIN 250 MG TAB (ZITHROMAX) PO ONE (00:45)
[2023-01-03] MEDS ORDERED: APIXABAN 5 MG (ELIQUIS) TABLET PO ONE (00:45)
[2023-01-03] MEDS ORDERED: ACETAMINOPHEN 325 MG TABLET ONE (01:13)
[2023-01-03] MEDS ORDERED: ACETAMINOPHEN 325 MG TABLET PO PRN (01:15)
[2023-01-03] MEDS ORDERED: CATHETER FLUSH 10 ML SYR IVP PRN (01:30)
[2023-01-03] MEDS ORDERED: ONDANSETRON 4 MG/2 ML (SDV) Z0FRAN IV PRN (01:30)
[2023-01-03] MEDS: cefTRIAXone 1 GM PRE-MIX 50 ML IV SCH ×2 (01:37→21:15)
[2023-01-03] MEDS ORDERED: NS IV 500 ML 500 ML IV PRN (02:00)
--- NOTE | 2023-01-03 02:06 | Tele-ICU Progress Note ---
Progress Note 72F with COPD, h/o spontaneous PTX 2018, h/o TB, CAD, ICM, HTN, HLD, GERD, hypothyroid presented for rapid heart rate/palpitations. Has had sinus and chest congestion x1 wk. In ED found to be in afib with RVR. No known afib history. Started on cardizem gtt for rate control and given a dose of eliquis. She has had a productive cough as well. She reports she was told she had a viral syndrome last week, but was also given antibiotics. She did not take them because she did not feel like she needed them. Plan: - Pneumonia: history more suggestive of viral infection, but CXR has infiltrate and CRP of 8.95 mg/dL (89.5 mg/L) more suggestive of bacterial pneumonia than viral URI. Given azithro in ED, will add Rocephin. - afib: cardiology managing. Cardizem gtt ongoing with BP 108/71, down from 136/107. HR improved to 110s-120s, down from 150s. No h/o afib, but of note had a holter last summer with a few runs of atrial tachycardia, only up to 6 beats in length with a rate of 160. Also noted to have ED visit 04/06 for cold/sinus congestion and presented with reports of HR 140s, which had improved to 120s on presentation and 80s post 1L IVF. Initial rhythm was not documented. - ICM: patient reported to have ischemic cardiomyopathy, however echo in 05/06 and 10/03 with EF 55-60%, stage 1 diastolic dysfunction. Patient assessed via real-time audiovisual communciation system. CCT 16 min Focused Exam Height, Weight, BMI Height: 5'4.00" Weight: 159lbs. 6.0oz. 72.095726ra; 24.97 BMI Method:Stated YOSEPH TINAJERO MD Jan 03, 2023 02:06
[2023-01-03 05:27] LABS: BASOPHILS % (AUTO) 0 % (0-10); EOSINOPHILS # (AUTO) 0.4 10^3/uL (0.0-0.3); EOSINOPHILS % (AUTO) 3 % (0-10); HEMATOCRIT 43 % (35-52); HEMOGLOBIN 14.4 g/dL (11.5-16.0); LYMPHOCYTES # (AUTO) 2.7 10^3/uL (1.0-4.0); LYMPHOCYTES % (AUTO) 17 % (12-44); MEAN CORPUSCULAR HEMOGLOBIN 30 pg (25-34); MEAN CORPUSCULAR HGB CONC 34 g/dL (32-36); MEAN CORPUSCULAR VOLUME 88 fL (80-99); MEAN PLATELET VOLUME 10.6 fL (9.0-12.2); MONOCYTES # (AUTO) 1.4 10^3/uL (0.0-1.0); MONOCYTES % (AUTO) 8 % (0-12); NEUTROPHILS # (AUTO) 11.7 10^3/uL (1.8-7.8); NEUTROPHILS % (AUTO) 72 % (42-75); PLATELET COUNT 423 10^3/uL (130-400); WHITE BLOOD COUNT 16.4 10^3/uL (4.3-11.0)
[2023-01-03 05:43] LABS: ALBUMIN 3.1 GM/DL (3.2-4.5); POTASSIUM 3.7 MMOL/L (3.6-5.0)
[2023-01-03 05:44] LABS: CALCIUM 8.5 MG/DL (8.5-10.1)
[2023-01-03 05:46] LABS: TOTAL PROTEIN 6.2 GM/DL (6.4-8.2)
[2023-01-03 05:49] LABS: CREATININE SERUM 0.64 MG/DL (0.60-1.30); PHOSPHORUS 4.2 MG/DL (2.3-4.7)
[2023-01-03 05:52] LABS: MAGNESIUM 1.9 MG/DL (1.6-2.4)
[2023-01-03 06:08] LABS: TRIGLYCERIDES 58 MG/DL (<150); VLDL CHOLESTEROL 12 MG/DL (5-40)
[2023-01-03] MEDS: CATHETER FLUSH 10 ML SYR IVP SCH ×3 (06:11→23:31)
[2023-01-03] MEDS: POTASSIUM CL 10MEQ/50ML IVPB 50 ML IV SCH (06:11)
[2023-01-03] MEDS: MAGNESIUM 1 GM/100 ML IVPB 100 ML IV SCH (06:11)
[2023-01-03] MEDS: KCL 20 MEQ TAB (K-DUR) PO SCH (06:12)
[2023-01-03 06:13] LABS: CHOLESTEROL 123 MG/DL (< 200)
[2023-01-03 06:14] LABS: HDL CHOLESTEROL 49 MG/DL (40-60)
--- NOTE | 2023-01-03 06:47 | Diagnostic Imaging Report ---
INDICATION: Chest pain Portable chest 10:38 PM Heart size and pulmonary vascularity are normal. Lungs are clear. There are no effusions or pneumothoraces. IMPRESSION: Negative chest Dictated by: Dictated on workstation # [id number]
[2023-01-03] MEDS ORDERED: [UNRECOGNIZED DRUG - OTHER] IV SCH (07:00)
[2023-01-03] MEDS: dilTIAZem DRIP PRE-MIX 125 ML IV SCH ×2 (07:04→08:43)
[2023-01-03] MEDS: APIXABAN 5 MG (ELIQUIS) TABLET PO SCH ×2 (08:39→21:15)
[2023-01-03 08:43] VITALS: BP 95/81
[2023-01-03] MEDS ORDERED: KCL 20 MEQ TAB (K-DUR) PO ONE (09:00)
[2023-01-03] MEDS ORDERED: ACETAMINOPHEN 500 MG TAB (TYLENOL) PO NR (09:30)
[2023-01-03] MEDS ORDERED: ACETAMINOPHEN 500 MG TAB (TYLENOL) PO PRN (09:30)
[2023-01-03] MEDS ORDERED: RT-ALBUTEROL HFA 8.5 GM INHALER IH PRN (09:30)
--- NOTE | 2023-01-03 10:52 | History & Physical-Hospitalist ---
ROCAEL YOUNG 01/03/23 1052: History of Present Illness HPI/Chief Complaint Rose is a 72 yo F w/ hx of copd, CAD, and hypothyroidism who presented ye sterday after 1 hour of palpitations and fast heart beat. She notes she recently overcame an illness last week that included sinus and chest congestion. She says this has happened in the past but has never been this fast or severe, and she does not have a prior history of afib/flutter. In ED, w/u revealed atrial flutter w/ RVR on EKG and a low TSH with normal reflex T4. She follows with Dr. Cortez for a hx of ischemic cardiomyopathy, and an echo in 10/03 revealed stage 1 diastolic dysfunction with EF of 55-60%. Today her HR is well controlled on cardizem drip, and she reports no palpitations or dizziness. Source: patient, old records Date Seen 01/03/23 Time Seen by a Provider: 09:00 Attending Physician Anselmo Hollingsworth DO PCP Admitting Physician: Merlyn Galvan DO Attending Physician: Merlyn Galvan DO Referring Physician Date of Admission Jan 03, 2023 at 00:41 Home Medications & Allergies Home Medications Reviewed patient Home Medication Reconciliation performed by pharmacy medication reconciliations poultry field service technician and/or nursing. Patients Allergies have been reviewed. Allergies Allergies Coded Allergies cephalexin (Verified Allergy, Unknown, HIVES, 08/04/10) warfarin (Unverified Allergy, Unknown, 10/15/14) codeine (Verified Adverse Reaction, Unknown, MADE iLL, 08/04/10) Past Cncqinb-Lxetis-Rsjuvr Hx Patient Social History Tobacco Use?: No Smoking Status: Former Smoker Use of E-Cig and/or Vaping dev: No Substance use?: No Alcohol Use?: No Immunizations Up To Date Date of Influenza Vaccine: Aug 16, 2014 Tetanus Booster (TDap): Less Than 5 Years Hepatitis A: No Hepatitis B: No Date of Pneumonia Vaccine: Oct 16, 2008 Current Status Communicates: Verbally Primary Language: [place] Preferred Spoken Language: Bhutanese Is interpretation needed?: No Past Medical History Surgeries: Bladder Surgery, Coronary Stent, Hysterectomy Pneumonia, Chronic Bronchitis, COPD Cardiomyopathy (Ischemic), Coronary Artery Disease, Heart Attack, 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 Sexually Transmitted Disease: No HIV/AIDS: No Kidney Infection Gastroesophageal Reflux, Hiatal Hernia Arthritis Hypothyroidsim (Graves' disease) Cataract, Tinnitis Loss of Vision: Denies Hearing Impairment: Denies Cervical Did You Recieve Any Treatments: Yes What Type of Treatment Did You: Other (Cryotherapy) Depression Blood Disorders: No Adverse Reaction/Blood Tranf: No Family Medical History Alcoholism 19 FATHER Arthritis Cardiovascular disease 19 MOTHER Completed stroke 19 MOTHER Diabetes mellitus 19 MOTHER Drug abuse G8 BROTHER G8 BROTHER Hypertension 19 MOTHER Myocardial infarction 19 MOTHER Psychosocial problem 19 MOTHER G8 SISTER G8 SISTER Respiratory disorder No Family History of: AIDS Abdominal aortic aneurysm [place]'s disease Alzheimer's disease Aphasia Asthma Cancer of mouth Cataracts Colon cancer Congenital disease Congenital heart disease Coronary thrombosis Cystic fibrosis Deafness or hearing loss Dementia Dysphasia Fibrocystic disease of breast Gastroenteritis Glaucoma Headache disorder Hypercholesterolemia Infertility Kidney disease Neoplasm Not obtainable due to adoption Osteoporosis Parkinson's disease Prostate cancer Seizure disorder Severe allergy Thyroid disease Tuberculosis Visual disorder Review of Systems Constitutional: No diaphoresis, No dizziness, No weakness EENTM: No blurred vision, No double vision Respiratory: cough; No short of breath Cardiovascular: No chest pain, No palpitations Gastrointestinal: No abdominal pain, No nausea, No vomiting Genitourinary: No dysuria, No frequency Musculoskeletal: no symptoms reported Skin: no symptoms reported Psychiatric/Neurological: No Symptoms Reported All Other Systems Reviewed Negative Unless Noted: Yes Physical Exam Physical Exam Vital Signs Vital Signs - First Documented Capillary Refill : Less Than 3 Seconds Height, Weight, BMI Height: 5'4.00" Weight: 159lbs. 6.0oz. 72.287207nd; 24.97 BMI Method:Stated General Appearance: No Apparent Distress, WD/WN Eyes: Bilateral Eye Normal Inspection, Bilateral Eye PERRL, Bilateral Eye EOMI HEENT: Moist Mucous Membranes; No Scleral Icterus (L), No Scleral Icterus (R) Neck: Normal Inspection, Non Tender, Supple; No JVD Respiratory: Normal Breath Sounds, No Accessory Muscle Use Cardiovascular: No JVD, No Murmur, Normal Peripheral Pulses; No Tachycardia Gastrointestinal: Non Tender, Soft; No Distended Extremity: Normal Capillary Refill, Normal Inspection, No Calf Tenderness, No Pedal Edema Neurologic/Psychiatric: Alert, Oriented x3, No Motor/Sensory Deficits, Normal Mood/Affect, instructional support technician II-XII Norm as Tested Skin: Normal Color, Warm/Dry Results Results/Procedures Labs Laboratory Tests 01/02/23 22:05 01/03/23 04:07 Patient resulted labs reviewed. Imaging: Reviewed Imaging Films, Reviewed Imaging Report Assessment/Plan Admission Diagnosis Atrial Flutter w/ RVR Admission Status: Inpatient Order (span 2 midnights) Reason for Inpatient Admission: Heart rate control Assessment and Plan Atrial Flutter w/ RVR ICM -EKG with a flutter, HR in 150s ED -rate well controlled on cardizem drip rate of 5, titrating down -HR in 90s, asymptomatic goal <110 -on apixaban for embolic risk -ordering echo, previous 10/03 with 55-60% EF grade 1 diastolic dysfunction. Cough -productive, illness last week -WBC count 16.4 -cxr is negative for acute -on rocephin for now, monitor Hypothyroidism -TSH low, normal reflex t4 -holding home med for now, possible contribution to HR DVT ppx: on apixaban GI ppx: ppi diet: full Dispo: keep in ICU for now, weaning off cardizem drip. MERLYN GALVAN DO 01/04/23 0518: Past Umagyyl-Awcskg-Lnunuh Hx Family Medical History Alcoholism 19 FATHER Arthritis Cardiovascular disease 19 MOTHER Completed stroke 19 MOTHER Diabetes mellitus 19 MOTHER Drug abuse G8 BROTHER G8 BROTHER Hypertension 19 MOTHER Myocardial infarction 19 MOTHER Psychosocial problem 19 MOTHER G8 SISTER G8 SISTER Respiratory disorder No Family History of: AIDS Abdominal aortic aneurysm Ad's disease Alzheimer's disease Aphasia Asthma Cancer of mouth Cataracts Colon cancer Congenital disease Congenital heart disease Coronary thrombosis Cystic fibrosis Deafness or hearing loss Dementia Dysphasia Fibrocystic disease of breast Gastroenteritis Glaucoma Headache disorder Hypercholesterolemia Infertility Kidney disease Neoplasm Not obtainable due to adoption Osteoporosis Parkinson's disease Prostate cancer Seizure disorder Severe allergy Thyroid disease Tuberculosis Visual disorder Supervisory-Addendum Brief Verification & Attestation Participated in pt care: history, MDM, physical Personally performed: exam, history, MDM, supervision of care Care discussed with: Medical Student Procedures: n/a Results interpretation: Verified all documentation Verification and Attestation of Medical Student E/M Service A medical student performed and documented this service in my presence. I reviewed and verified all information documented by the medical student and made modifications to such information, when appropriate. I personally performed the physical exam and medical decision making. Merlyn Galvan, Jan 04, 2023,05:17 ROCAEL YOUNG Jan 03, 2023 10:52 MERLYN GALVAN DO Jan 04, 2023 05:18
--- NOTE | 2023-01-03 11:16 | Consultation-Cardiology ---
HPI-Cardiology Cardiology Consultation: Date of Consultation 01/03/23 Time Seen by a Provider: 10:40 Date of Admission 01-02-23 Attending Physician Philip Hollingsworth DO Admitting Physician Admitting Physician: Merlyn Santos DO Attending Physician: Merlyn Santos DO Consulting Physician Deepthi Cortez MD HPI: Chief Complaint: New onset a-fib with RVR Ms. Stanley is a 72 yr old female admitted to ICU 5 from the ED. She reports she has been feeling gen unwell for the last several weeks and had been to see her PCP. She reports she was given an abx to take and told she could start it if she did not feel any better. She reports she had a fever off and on last week. She reports she was feeling a little better until yesterday when developed worsening congestion, cough, fatigue and SOB. She reports she slept most of the day yesterday. She reports yesterday evening she noted her HR to be fast. She could not find her pulse ox; she called her daughter who came over and used her pulse ox. She reports her HR was fast, going as high as 192 bpm. She states she then came to the ED. She reports she has had a poor appetite recently. She reports has had musculoskeletal pain from coughing. No c/o syncope or near syncope. No c/o n/v/d. She states she is feeling somewhat better today. She is currently on a Cardizem gtt. She is in a-fib at the start of my exam with a HR in the 100's. She converted to SR with HR in the 70's by the end of my exam. She received Eliquis in the ED. Review of Systems-Cardiology Review of Systems Constitutional: As described under HPI Eyes: No vision change Ears/Nose/Throat: No epistaxis, No recent hearing loss Respiratory: As described under HPI Cardiovascular: As described under HPI Gastrointestinal: As described under HPI Genitourinary: No dysuria, No hematuria Musculoskeletal: no symptoms reported Skin: No rash on exposed areas, No ulcerations on exposed areas Psychiatric/Neurological: No anxiety, No depression, No seizure, No focal weakness Hematologic: No bleeding abnormalities AQX-Gtueij-[id number] Hx Patient Social History Smoking Status: Former Smoker Former smoker/When Quit: March 04, 2009 Have you traveled recently?: No Alcohol Use?: No Immunizations Up To Date Tetanus Booster (TDap): More than 5yrs Date of Pneumonia Vaccine: Oct 16, 2008 Date of Influenza Vaccine: Aug 16, 2014 Past Medical History PMH As described under Assessment. Family Medical History Family Medical History: She reports she has a sister with a-fib who has had a stroke. She reports her mother had CAD, HTN and stroke. Family History: 19 FATHER Alcoholism 19 MOTHER Cardiovascular disease Completed stroke Diabetes mellitus Hypertension Myocardial infarction Psychosocial problem G8 BROTHER Drug abuse G8 BROTHER Drug abuse G8 SISTER Psychosocial problem G8 SISTER Psychosocial problem Relation not specified for: Arthritis Respiratory disorder Allergies and Home Medications Allergies Coded Allergies: cephalexin (Verified Allergy, Unknown, HIVES, 08/04/10) warfarin (Unverified Allergy, Unknown, 10/15/14) codeine (Verified Adverse Reaction, Unknown, MADE iLL, 08/04/10) Patient Home Medication List Acetaminophen (Tylenol Extra Strength) 500 Mg Tablet, 1,000 MG PO Q8H PRN for PAIN-MILD (1-4), (Reported) Entered as Reported by: PHILIP JARAMILLO on 01/03/231224 Last Action: Reviewed Albuterol Sulfate (Ventolin Hfa) 1 Puff Puff, 2 PUFF IH Q6H PRN for SHORTNESS OF BREATH, (Reported) Entered as Reported by: REG SCHULTZ on 02/25/19 1004 Last Action: Reviewed Aspirin (Aspirin EC) 81 Mg Tablet.dr, 81 MG PO HS, (Reported) Entered as Reported by: PHILIP JARAMILLO on 01/03/231224 Last Action: Reviewed Atorvastatin Calcium (Atorvastatin Calcium) 40 Mg Tablet, 40 MG PO HS, (Reported) Entered as Reported by: REG SCHULTZ on 02/25/19 0956 Last Action: Reviewed Budesonide/Formoterol Fumarate (Symbicort 160-4.5 Mcg Inhaler) 160 Mcg-4.5 Mcg/Actuation Hfa.aer.ad, 2 PUFF INH BID, (Reported) Entered as Reported by: PHILIP JARAMILLO on 01/03/231224 Last Action: Reviewed Cetirizine HCl (Cetirizine HCl) 10 Mg Tablet, 10 MG PO DAILY, (Reported) Entered as Reported by: PHILIP JARAMILLO on 01/03/231224 Last Action: Reviewed Fluticasone Propionate (Fluticasone Propionate) 50 Mcg/Actuation Vulcan.susp, 1 SPRAY NSEACH DAILY, (Reported) Entered as Reported by: PHILIP JARAMILLO on 01/03/231224 Last Action: Reviewed Levothyroxine Sodium (Levothyroxine Sodium) 100 Mcg Tablet, 100 MCG PO DAILY, (Reported) Entered as Reported by: PHILIP JARAMILLO on 01/03/231224 Last Action: Reviewed Metoprolol Succinate (Metoprolol Succinate) 25 Mg Tab.er.24h, 25 MG PO DAILY, (Reported) Entered as Reported by: PHILIP JARAMILLO on 01/03/231224 Last Action: Reviewed Sodium Chloride (Saline Nose Vulcan) 0.65 % Vulcan, 1 SPRAY NS UD PRN for DRY NOSE, (Reported) Entered as Reported by: PHILIP JARAMILLO on 01/03/231224 Last Action: Reviewed Discontinued Medications Aspirin (Aspirin EC) 81 Mg Tablet.dr, 81 MG PO HS, (Reported) Discontinued Reason: Duplicate Order Entered as Reported by: REG SCHULTZ on 02/25/19958 Last Action: Discontinued Cetirizine HCl (Cetirizine HCl) 10 Mg Tablet, 10 MG PO DAILY, (Reported) Discontinued Reason: Duplicate Order Entered as Reported by: REG SCHULTZ on 02/25/19958 Last Action: Discontinued Levothyroxine Sodium (Levothyroxine Sodium) 112 Mcg Tablet, 112 MCG PO HS, (Reported) Discontinued Reason: Duplicate Order Entered as Reported by: REG SCHULTZ on 02/25/19955 Last Action: Discontinued Pantoprazole Sodium (Pantoprazole Sodium) 40 Mg Tablet.dr, 40 MG PO DAILY, (Reported) Discontinued Reason: Duplicate Order Entered as Reported by: REG SCHULTZ on 02/25/19955 Last Action: Discontinued Physical Exam-Cardiology Physical Exam Vital Signs/I&O 01/03/23 01/03/23 01/03/23 01/03/23 04:45 05:00 05:15 05:30 Pulse 89 86 92 85 Resp 17 18 B/P (MAP) 91/63 (69) 93/68 (79) 83/57 (67) 86/59 (67) Pulse Ox 94 93 97 97 O2 Delivery Nasal Cannula Nasal Cannula Nasal Cannula Nasal Cannula O2 Flow Rate 3.00 3.00 3.00 3.00 01/03/23 01/03/23 01/03/23 01/03/23 05:45 06:00 07:00 07:01 Pulse 89 73 74 84 Resp 26 17 B/P (MAP) 91/65 (75) 91/67 (71) 85/62 (70) Pulse Ox 97 97 96 O2 Delivery Nasal Cannula Nasal Cannula Nasal Cannula O2 Flow Rate 3.00 3.00 3.00 01/03/23 01/03/23 01/03/23 01/03/23 08:00 08:00 08:00 08:43 Temp 36.1 Pulse 90 103 Resp 25 B/P (MAP) 99/64 (76) 95/81 Pulse Ox 94 91 O2 Delivery Nasal Cannula Nasal Cannula O2 Flow Rate 3.00 3.00 01/03/23 01/03/23 01/03/23 01/03/23 08:57 09:00 10:00 11:00 Pulse 113 130 113 B/P (MAP) 88/73 (78) 106/76 (86) 100/72 (81) Pulse Ox 91 91 92 92 O2 Delivery Room Air Room Air Room Air Room Air 01/03/23 01/03/23 01/03/23 01/03/23 12:00 12:00 12:00 13:00 Temp 36.2 Pulse 80 75 B/P (MAP) 86/51 (63) Pulse Ox 93 91 O2 Delivery Room Air Room Air 01/03/23 13:00 Pulse 73 Resp 19 B/P (MAP) 87/58 (68) Pulse Ox 92 O2 Delivery Room Air Capillary Refill : Less Than 3 Seconds Constitutional: AAO x 3, well-developed, well-nourished HEENT: PERRL, hearing is well preserved, oral hygience is good Neck: No carotid bruit; carotid pulses are 2 + bilaterally Respiratory: No accessory muscle use, No respiratory distress; chest expansion is symmetric, chest is bilaterally symmetric, rhonchi (scattered), other (coarse crackles bases bilat) Cardiovascular: irregularly irregular; No JVD; S1 and S2 Gastrointestinal: No tender; soft, round, audible bowel sounds Extremities: no lower extremity edema bilateral Neurologic/Psychiatric: grossly intact (moves all extremities) Skin: No rash on exposed areas, No ulcerations on exposed areas Data Review Labs Laboratory Tests 01/02/23 22:05: White Blood Count 16.4H, Red Blood Count 5.22H, Hemoglobin 15.6, Hematocrit 46, Mean Corpuscular Volume 88, Mean Corpuscular Hemoglobin 30, Mean Corpuscular Hemoglobin Concent 34, Red Cell Distribution Width 12.3, Platelet Count 475H, Mean Platelet Volume 9.9, Immature Granulocyte % (Auto) 1, Neutrophils (%) (Auto) 70, Lymphocytes (%) (Auto) 19, Monocytes (%) (Auto) 8, Eosinophils (%) (Auto) 3, Basophils (%) (Auto) 0, Neutrophils # (Auto) 11.4H, Lymphocytes # (Auto) 3.1, Monocytes # (Auto) 1.2H, Eosinophils # (Auto) 0.5H, Basophils # (Auto) 0.1, Immature Granulocyte # (Auto) 0.1, Neutrophils % (Manual) 66, Lymph ocytes % (Manual) 24, Monocytes % (Manual) 7, Eosinophils % (Manual) 3, Blood Morphology Comment NORMAL, Prothrombin Time 13.7, INR Comment 1.0, Activated Partial Thromboplast Time 31, Sodium Level 138, Potassium Level 3.6, Chloride Level 104, Carbon Dioxide Level 20L, Anion Gap 14, Blood Urea Nitrogen 8, Creatinine 0.75, Estimat Glomerular Filtration Rate 85, BUN/Creatinine Ratio 11, Glucose Level 138H, Calcium Level 9.0, Corrected Calcium 9.3, Magnesium Level 1.9, Total Bilirubin 2.3H, Aspartate Amino Transf (AST/SGOT) 25, Alanine Aminotransferase (ALT/SGPT) 30, Alkaline Phosphatase 92, Myoglobin 28.4, Troponin I < 0.028, C-Reactive Protein High Sensitivity 8.95H, Total Protein 7.2, Albumin 3.6, Free Thyroxine 1.09, TSH Logan Testing 0.07L 01/03/23 03:00: Influenza Type A (RT-PCR) Not Detected, Influenza Type B (RT-PCR) Not Detected, SARS-CoV-2 RNA (RT-PCR) Not Detected 01/03/23 04:07: White Blood Count 16.4H, Red Blood Count 4.82, Hemoglobin 14.4, Hematocrit 43, Mean Corpuscular Volume 88, Mean Corpuscular Hemoglobin 30, Mean Corpuscular Hemoglobin Concent 34, Red Cell Distribution Width 12.3, Platelet Count 423H, Mean Platelet Volume 10.6, Immature Granulocyte % (Auto) 1, Neutrophils (%) (Auto) 72, Lymphocytes (%) (Auto) 17, Monocytes (%) (Auto) 8, Eosinophils (%) (Auto) 3, Basophils (%) (Auto) 0, Neutrophils # (Auto) 11.7H, Lymphocytes # ( Auto) 2.7, Monocytes # (Auto) 1.4H, Eosinophils # (Auto) 0.4H, Basophils # (Auto) 0.0, Immature Granulocyte # (Auto) 0.1, Sodium Level 137, Potassium Level 3.7, Chloride Level 106, Carbon Dioxide Level 20L, Anion Gap 11, Blood Urea Nitrogen 7, Creatinine 0.64, Estimat Glomerular Filtration Rate 94, BUN/Creatinine Ratio 11, Glucose Level 108H, Calcium Level 8.5, Corrected Calcium 9.2, Magnesium Level 1.9, Total Bilirubin 2.0H, Aspartate Amino Transf (AST/SGOT) 19, Alanine Aminotransferase (ALT/SGPT) 26, Alkaline Phosphatase 80, Total Protein 6.2L, Albumin 3.1L, Phosphorus Level 4.2, Triglycerides Level 58, Cholesterol Level 123, LDL Cholesterol Direct 64, VLDL Cholesterol 12, HDL Cholesterol 49 Radiology NAME: MACKENZIE STANLEY MED REC#: [id number] PT STATUS: ADM IN : 1950 PHYSICIAN: JOSÉ MANUEL KAPADIA MD ADMIT DATE: 01/03/23/ICU Signed Date of Exam:01/02/23 CHEST 1 VIEW, AP/PA ONLY INDICATION: Chest pain Portable chest 10:38 PM Heart size and pulmonary vascularity are normal. Lungs are clear. There are no effusions or pneumothoraces. IMPRESSION: Negative chest Dictated by: Dictated on workstation # [id number] Dict: 01/03/23 0646 Trans: 01/03/23 0657 CV [id number] Interpreted by: JESSICA WAITE MD Electronically signed by: JESSICA WAITE MD 01/03/23 0657 ECG Impression ECG Initial ECG Impression: Atrial Fibrillation w/RVR A/P-Cardiology Assessment/Admission Diagnosis Newly dx a-fib with RVR - first dx on ECG at [facility] ED on 01-02-23 URI - management per medical servcies Low TSH (indicative of hyperthyroidism) - lab of 01-02-23 - management per medical services H/O Palpitations - 24 HR Holter of 04-22-22 showed NSR with av HR 72 bpm. A few atrial tach runs up to 6 beats in length and up to 160 bpm. No VT. Mod number of isolated PVC's (burden 0.4%) No signif christa Coronary artery disease - with a history of acute myocardial infarction in December 2011 which was treated with primary angioplasty and stenting of the proximal right coronary artery. The patient received Resolute 2.5 x 13 millimeter stent in the right coronary artery. - MPI of 05-16-22: Read by Dr. Campbell showed no significant ischemia or infarction. Normal left ventricular size, ejection fraction 67% H/o ischemic cardiomyopathy - with an ejection fraction of 40 to 45% at the time of cardiac catheterization of December 2011. - Last echo of 04-22-22 LVEF 55-60%. Mild to mod AoR. PASP 20-25 mmHg History of tobacco use - from which she has been refraining since 2009 Hypothyroidism - being treated with thyroid replacement therapy and being managed by pcp; currently iatrogenic hyperthyroidism (TSH 0.02 on 07/10/19) that is managed by her pcp GI - Reflux esophagitis and a small hiatal hernia and gastroesophageal reflux per upper endoscopy carried out by Dr. Steele in January 2012. Medication Intolerances - Allergy to SHAHRIAR inhibitor. - Allergy to warfarin. Hyperlipidemia - currently being treated with statin therapy - managed by PCP Carotid dz - Minimal carotid arterial disease per carotid u/s from 09-29-21 Discussion and Recomendations Newly dx a-fib with RVR - started on Cardizem gtt - converted to SR with controlled rate - start oral Cardizem - start Eliquis for stroke prophylaxis (already started) Echocardiogram to eval structure and function URI - management per medical services Elevated TSH on lab of 01-02-23 - management of thyroid replacement per medical services Monitor lab closely - replace electrolytes as indicated Further recs will be based on her hospital course We would like to thank medical services for this consult DAVID MALDONADO Jan 03, 2023 11:16
[2023-01-03] MEDS ORDERED: RT--FLUTICASONE/SALMETEROL 113-14 (AIRDUO RespiCLICK) IH SCH (11:45)
[2023-01-03] MEDS: guaiFENesin/DM (ROBITUSSIN DM) 10 ML UDC PO PRN ×2 (12:20→17:33)
[2023-01-03] MEDS ORDERED: BUDE10.2 INH (12:25)
[2023-01-03] MEDS ORDERED: LEVO100T7 PO (12:25)
[2023-01-03] MEDS ORDERED: MTP25TSR PO (12:25)
[2023-01-03] MEDS ORDERED: CETI10TA17 PO (12:25)
[2023-01-03] MEDS ORDERED: FLUT16SP22 NSEACH (12:25)
[2023-01-03] MEDS ORDERED: SODI45SP9 NS (12:25)
[2023-01-03] MEDS ORDERED: ASPI-1238 PO (12:25)
[2023-01-03] MEDS ORDERED: ACET-2267 PO (12:25)
--- NOTE | 2023-01-03 14:32 | Consultation-Cardiology ---
HPI-Cardiology Cardiology Consultation: Date of Consultation 01/03/23 Time Seen by a Provider: 11:30 Date of Admission Attending Physician Philip Hollingsworth DO Admitting Physician Admitting Physician: Merlyn Santos DO Attending Physician: Merlyn Santos DO Consulting Physician RHONA TANNER MD, MA, FACP, FACC, FSCAI, CCDS Physician requesting consult: Dr Santos HPI: Chief Complaint: Reason for Card consult: New onset a-fib with RVR Ms. Bell is a 72 yr old female admitted to ICU 5 from the ED. She reports she has been feeling gen unwell for the last several weeks and had been to see her PCP. She reports she was given an abx to take and told she could start it if she did not feel any better. She reports she had a fever off and on last week. She reports she was feeling a little better until yesterday when developed worsening congestion, cough, fatigue and SOB. She reports she slept most of the day yesterday. She reports yesterday evening she noted her HR to be fast. She could not find her pulse ox; she called her daughter who came over and used her pulse ox. She reports her HR was fast, going as high as 192 bpm. She states she then came to the ED. She reports she has had a poor appetite recently. She reports has had musculoskeletal pain from coughing. No c/o syncope or near syncope. No c/o n/v/d. She states she is feeling somewhat better today. She is currently on a Cardizem gtt. She is in a-fib at the start of my exam with a HR in the 100's. She converted to SR with HR in the 70's by the end of my exam. She received Eliquis in the ED. Review of Systems-Cardiology Review of Systems Constitutional: As described under HPI Eyes: No vision change Ears/Nose/Throat: No epistaxis, No recent hearing loss Respiratory: As described under HPI Cardiovascular: As described under HPI Gastrointestinal: As described under HPI Genitourinary: No dysuria, No hematuria Musculoskeletal: no symptoms reported Skin: No rash on exposed areas, No ulcerations on exposed areas Psychiatric/Neurological: No anxiety, No depression, No seizure, No focal weakness Hematologic: No bleeding abnormalities All Other Systems Reviewed Negative Unless Noted: Yes QVU-Rfrpkh-Efitim Hx Patient Social History Smoking Status: Former Smoker Former smoker/When Quit: March 04, 2009 Have you traveled recently?: No Alcohol Use?: No Immunizations Up To Date Tetanus Booster (TDap): More than 5yrs Date of Pneumonia Vaccine: Oct 16, 2008 Date of Influenza Vaccine: Aug 16, 2014 Past Medical History PMH As described under Assessment. Family Medical History Family Medical History: She reports she has a sister with a-fib who has had a stroke. She reports her mother had CAD, HTN and stroke. Family History: Alcoholism 19 FATHER Arthritis Cardiovascular disease 19 MOTHER Completed stroke 19 MOTHER Diabetes mellitus 19 MOTHER Drug abuse G8 BROTHER G8 BROTHER Hypertension 19 MOTHER Myocardial infarction 19 MOTHER Psychosocial problem 19 MOTHER G8 SISTER G8 SISTER Respiratory disorder No Family History of: AIDS Abdominal aortic aneurysm Placer's disease Alzheimer's disease Aphasia Asthma Cancer of mouth Cataracts Colon cancer Congenital disease Congenital heart disease Coronary thrombosis Cystic fibrosis Deafness or hearing loss Dementia Dysphasia Fibrocystic disease of breast Gastroenteritis Glaucoma Headache disorder Hypercholesterolemia Infertility Kidney disease Neoplasm Not obtainable due to adoption Osteoporosis Parkinson's disease Prostate cancer Seizure disorder Severe allergy Thyroid disease Tuberculosis Visual disorder Allergies and Home Medications Allergies Coded Allergies: cephalexin (Verified Allergy, Unknown, HIVES, 08/04/10) warfarin (Unverified Allergy, Unknown, 10/15/14) codeine (Verified Adverse Reaction, Unknown, MADE iLL, 08/04/10) Patient Home Medication List Home Medication List Reviewed: Yes Acetaminophen (Tylenol Extra Strength) 500 Mg Tablet, 1,000 MG PO Q8H PRN for PAIN-MILD (1-4), (Reported) Entered as Reported by: PHILIP JARAMILLO on 01/03/23 1225 Last Action: Reviewed Albuterol Sulfate (Ventolin Hfa) 1 Puff Puff, 2 PUFF IH Q6H PRN for SHORTNESS OF BREATH, (Reported) Entered as Reported by: REG SCHULTZ on 02/25/19 1004 Last Action: Reviewed Aspirin (Aspirin EC) 81 Mg Tablet.dr, 81 MG PO HS, (Reported) Entered as Reported by: PHILIP JARAMILLO on 01/03/23 1225 Last Action: Reviewed Atorvastatin Calcium (Atorvastatin Calcium) 40 Mg Tablet, 40 MG PO HS, (Reported) Entered as Reported by: REG SCHULTZ on 02/25/19 0956 Last Action: Reviewed Budesonide/Formoterol Fumarate (Symbicort 160-4.5 Mcg Inhaler) 160 Mcg-4.5 Mcg/Actuation Hfa.aer.ad, 2 PUFF INH BID, (Reported) Entered as Reported by: PHILIP JARAMILLO on 01/03/231224 Last Action: Reviewed Cetirizine HCl (Cetirizine HCl) 10 Mg Tablet, 10 MG PO DAILY, (Reported) Entered as Reported by: PHILIP JARAMILLO on 01/03/231224 Last Action: Reviewed Fluticasone Propionate (Fluticasone Propionate) 50 Mcg/Actuation [place].susp, 1 SPRAY NSEACH DAILY, (Reported) Entered as Reported by: PHILIP JARAMILLO on 01/03/231224 Last Action: Reviewed Levothyroxine Sodium (Levothyroxine Sodium) 100 Mcg Tablet, 100 MCG PO DAILY, (Reported) Entered as Reported by: PHILIP JARAMILLO on 01/03/231224 Last Action: Reviewed Metoprolol Succinate (Metoprolol Succinate) 25 Mg Tab.er.24h, 25 MG PO DAILY, (Reported) Entered as Reported by: PHILIP JARAMILLO on 01/03/231224 Last Action: Reviewed Sodium Chloride (Saline Nose [place]) 0.65 % [place], 1 SPRAY NS UD PRN for DRY NOSE, (Reported) Entered as Reported by: PHILIP JARAMILLO on 01/03/231224 Last Action: Reviewed Discontinued Medications Aspirin (Aspirin EC) 81 Mg Tablet.dr, 81 MG PO HS, (Reported) Discontinued Reason: Duplicate Order Entered as Reported by: REG SCHULTZ on 02/25/19958 Last Action: Discontinued Cetirizine HCl (Cetirizine HCl) 10 Mg Tablet, 10 MG PO DAILY, (Reported) Discontinued Reason: Duplicate Order Entered as Reported by: REG SCHULTZ on 02/25/19958 Last Action: Discontinued Levothyroxine Sodium (Levothyroxine Sodium) 112 Mcg Tablet, 112 MCG PO HS, (Reported) Discontinued Reason: Duplicate Order Entered as Reported by: REG SCHULTZ on 02/25/19955 Last Action: Discontinued Pantoprazole Sodium (Pantoprazole Sodium) 40 Mg Tablet.dr, 40 MG PO DAILY, (Reported) Discontinued Reason: Duplicate Order Entered as Reported by: REG SCHULTZ on 5/13/19 0956 Last Action: Discontinued Physical Exam-Cardiology Physical Exam Vital Signs/I&O 01/03/23 01/03/23 01/03/23 01/03/23 02:30 02:35 02:45 03:00 Pulse 133 146 885 83 Resp 19 29 19 B/P (MAP) 82/75 (78) 94/61 (75) 90/63 (68) 84/65 (72) Pulse Ox 96 96 96 96 O2 Delivery Nasal Cannula Nasal Cannula Nasal Cannula Nasal Cannula O2 Flow Rate 3.00 3.00 3.00 3.00 01/03/23 01/03/23 01/03/23 01/03/23 03:15 03:30 03:30 03:45 Pulse 90 90 87 Resp 22 34 18 B/P (MAP) 84/60 (68) 84/65 (73) 90/60 (68) Pulse Ox 96 96 96 94 O2 Delivery Nasal Cannula Nasal Cannula Nasal Cannula Nasal Cannula O2 Flow Rate 3.00 3.00 3.00 3.00 01/03/23 01/03/23 01/03/23 01/03/23 04:00 04:15 04:30 04:45 Pulse 90 87 84 89 Resp 19 18 20 17 B/P (MAP) 91/64 (73) 90/64 (71) 89/64 (73) 91/63 (69) Pulse Ox 93 93 94 94 O2 Delivery Nasal Cannula Nasal Cannula Nasal Cannula Nasal Cannula O2 Flow Rate 3.00 3.00 3.00 3.00 01/03/23 01/03/23 01/03/23 01/03/23 05:00 05:15 05:30 05:45 Pulse 86 92 85 89 Resp 18 B/P (MAP) 93/68 (79) 83/57 (67) 86/59 (67) 91/65 (75) Pulse Ox 93 97 97 97 O2 Delivery Nasal Cannula Nasal Cannula Nasal Cannula Nasal Cannula O2 Flow Rate 3.00 3.00 3.00 3.00 01/03/23 01/03/23 01/03/23 01/03/23 06:00 07:00 07:01 08:00 Pulse 73 74 84 90 Resp 26 17 25 B/P (MAP) 91/67 (71) 85/62 (70) 99/64 (76) Pulse Ox 97 96 94 O2 Delivery Nasal Cannula Nasal Cannula Nasal Cannula O2 Flow Rate 3.00 3.00 3.00 01/03/23 01/03/23 01/03/23 01/03/23 08:00 08:43 08:57 09:00 Temp 36.1 Pulse 103 113 B/P (MAP) 95/81 88/73 (78) Pulse Ox 91 91 O2 Delivery Room Air Room Air 01/03/23 01/03/23 01/03/23 01/03/23 10:00 11:00 12:00 12:00 Temp 36.2 Pulse 130 113 80 B/P (MAP) 106/76 (86) 100/72 (81) 86/51 (63) Pulse Ox 92 92 91 O2 Delivery Room Air Room Air Room Air 01/03/23 01/03/23 13:00 13:00 Pulse 75 73 Resp 19 B/P (MAP) 87/58 (68) Pulse Ox 92 O2 Delivery Room Air Capillary Refill : Less Than 3 Seconds Constitutional: AAO x 3, well-developed, well-nourished HEENT: PERRL, hearing is well preserved, oral hygience is good Neck: No carotid bruit; carotid pulses are 2 + bilaterally Respiratory: No accessory muscle use, No respiratory distress; chest expansion is symmetric, chest is bilaterally symmetric, rhonchi (scattered), other (coarse crackles bases bilat) Cardiovascular: irregularly irregular; No JVD; S1 and S2 Gastrointestinal: No tender; soft, round, audible bowel sounds Extremities: no lower extremity edema bilateral Neurologic/Psychiatric: oriented x 3, other (moves all limbs equally) Skin: No rash on exposed areas, No ulcerations on exposed areas Data Review Labs Laboratory Tests 01/02/23 22:05: White Blood Count 16.4H, Red Blood Count 5.22H, Hemoglobin 15.6, Hematocrit 46, Mean Corpuscular Volume 88, Mean Corpuscular Hemoglobin 30, Mean Corpuscular He moglobin Concent 34, Red Cell Distribution Width 12.3, Platelet Count 475H, Mean Platelet Volume 9.9, Immature Granulocyte % (Auto) 1, Neutrophils (%) (Auto) 70, Lymphocytes (%) (Auto) 19, Monocytes (%) (Auto) 8, Eosinophils (%) (Auto) 3, Basophils (%) (Auto) 0, Neutrophils # (Auto) 11.4H, Lymphocytes # (Auto) 3.1, Monocytes # (Auto) 1.2H, Eosinophils # (Auto) 0.5H, Basophils # (Auto) 0.1, Immature Granulocyte # (Auto) 0.1, Neutrophils % (Manual) 66, Lymphocytes % (Manual) 24, Monocytes % (Manual) 7, Eosinophils % (Manual) 3, Blood Morphology Comment NORMAL, Prothrombin Time 13.7, INR Comment 1.0, Activated Partial Thromboplast Time 31, Sodium Level 138, Potassium Level 3.6, Chloride Level 104, Carbon Dioxide Level 20L, Anion Gap 14, Blood Urea Nitrogen 8, Creatinine 0.75, Estimat Glomerular Filtration Rate 85, BUN/Creatinine Ratio 11, Glucose Level 138H, Calcium Level 9.0, Corrected Calcium 9.3, Magnesium Level 1.9, Total Bilirubin 2.3H, Aspartate Amino Transf (AST/SGOT) 25, Alanine Aminotransferase (ALT/SGPT) 30, Alkaline Phosphatase 92, Myoglobin 28.4, Troponin I < 0.028, C- Reactive Protein High Sensitivity 8.95H, Total Protein 7.2, Albumin 3.6, Free Thyroxine 1.09, TSH [place] Testing 0.07L 01/03/23 03:00: Influenza Type A (RT-PCR) Not Detected, Influenza Type B (RT-PCR) Not Detected, SARS-CoV-2 RNA (RT-PCR) Not Detected 01/03/23 04:07: White Blood Count 16.4H, Red Blood Count 4.82, Hemoglobin 14.4, Hematocrit 43, Mean Corpuscular Volume 88, Mean Corpuscular Hemoglobin 30, Mean Corpuscular Hemoglobin Concent 34, Red Cell Distribution Width 12.3, Platelet Count 423H, Mean Platelet Volume 10.6, Immature Granulocyte % (Auto) 1, Neutrophils (%) (Auto) 72, Lymphocytes (%) (Auto) 17, Monocytes (%) (Auto) 8, Eosinophils (%) (Auto) 3, Basophils (%) (Auto) 0, Neutrophils # (Auto) 11.7H, Lymphocytes # (Auto) 2.7, Monocytes # (Auto) 1.4H, Eosinophils # (Auto) 0.4H, Basophils # (Au to) 0.0, Immature Granulocyte # (Auto) 0.1, Sodium Level 137, Potassium Level 3.7, Chloride Level 106, Carbon Dioxide Level 20L, Anion Gap 11, Blood Urea Nitrogen 7, Creatinine 0.64, Estimat Glomerular Filtration Rate 94, BUN/Creatinine Ratio 11, Glucose Level 108H, Calcium Level 8.5, Corrected Calcium 9.2, Magnesium Level 1.9, Total Bilirubin 2.0H, Aspartate Amino Transf (AST/SGOT) 19, Alanine Aminotransferase (ALT/SGPT) 26, Alkaline Phosphatase 80, Total Protein 6.2L, Albumin 3.1L, Phosphorus Level 4.2, Triglycerides Level 58, Cholesterol Level 123, LDL Cholesterol Direct 64, VLDL Cholesterol 12, HDL Cholesterol 49 Laboratory Tests 01/02/23 22:05 01/03/23 04:07 A/P-Cardiology Assessment/Admission Diagnosis Newly dx a-fib with RVR - first dx on ECG at [facility] ED on 01-02-23 URI - management per medical servcies Low TSH (indicative of hyperthyroidism) - lab of 01-02-23 - management per medical services H/O Palpitations - 24 HR Holter of 04-22-22 showed NSR with av HR 72 bpm. A few atrial tach runs up to 6 beats in length and up to 160 bpm. No VT. Mod number of isolated PVC's (burden 0.4%) No signif christa Coronary artery disease - with a history of acute myocardial infarction in December 2011 which was treated with primary angioplasty and stenting of the proximal right coronary artery. The patient received Resolute 2.5 x 13 millimeter stent in the right coronary artery. - MPI of 05-16-22: Read by Dr. Campbell showed no significant ischemia or infarction. Normal left ventricular size, ejection fraction 67% H/o ischemic cardiomyopathy - with an ejection fraction of 40 to 45% at the time of cardiac catheterization of December 2011. - Echo of 04-22-22 LVEF 55-60%. Mild to mod AoR. PASP 20-25 mmHg - Last echo of 01/03/23: LVEF 55-60%, mild to mod MR History of tobacco use - from which she has been refraining since 2009 Hypothyroidism - being treated with thyroid replacement therapy and being managed by pcp; currently iatrogenic hyperthyroidism (TSH 0.02 on 07/10/19) that is managed by her pcp GI - Reflux esophagitis and a small hiatal hernia and gastroesophageal reflux per upper endoscopy carried out by Dr. Steele in January 2012. Medication Intolerances - Allergy to SHAHRIAR inhibitor. - Allergy to warfarin. Hyperlipidemia - currently being treated with statin therapy - managed by PCP Carotid dz - Minimal carotid arterial disease per carotid u/s from 09-29-21 Discussion and Recomendations * Change iv dilt to oral * Eliquis for stroke prophylaxis * Echo obtained andreported above * Managment of URI is with the Med svce * Managment of hyperthyroidism is with the Med svce * Monitor lab closely and replace electrolytes as indicated * Further recs will be based on her hospital course * We would like to thank Medical services for this consult RHONA TANNER MD FACP FAC CCDS Jan 03, 2023 14:32
[2023-01-03] MEDS ORDERED: RT-ALBUTEROL SULF 2.5 MG/3 ML PRE-MIX VIAL IH PRN (20:45)
[2023-01-03] MEDS ORDERED: SALINE NASAL SPRAY (OCEAN) 45 ML BTL NS PRN (20:45)
[2023-01-03] MEDS ORDERED: ASPIRIN E.C. 81 MG (ECOTRIN) TAB PO SCH (21:00)
[2023-01-03] MEDS ORDERED: AZITHROMYCIN 250 MG TAB (ZITHROMAX) PO SCH (21:00)
[2023-01-04 05:35] LABS: BASOPHILS # (AUTO) 0.1 10^3/uL (0.0-0.1); BASOPHILS % (AUTO) 0 % (0-10); EOSINOPHILS # (AUTO) 0.3 10^3/uL (0.0-0.3); EOSINOPHILS % (AUTO) 2 % (0-10); HEMATOCRIT 44 % (35-52); HEMOGLOBIN 15.2 g/dL (11.5-16.0); LYMPHOCYTES % (AUTO) 12 % (12-44); MEAN CORPUSCULAR HEMOGLOBIN 30 pg (25-34); MEAN CORPUSCULAR HGB CONC 34 g/dL (32-36); MEAN CORPUSCULAR VOLUME 88 fL (80-99); MEAN PLATELET VOLUME 10.1 fL (9.0-12.2); MONOCYTES # (AUTO) 0.9 10^3/uL (0.0-1.0); MONOCYTES % (AUTO) 6 % (0-12); NEUTROPHILS # (AUTO) 13.1 10^3/uL (1.8-7.8); NEUTROPHILS % (AUTO) 80 % (42-75); PLATELET COUNT 446 10^3/uL (130-400); WHITE BLOOD COUNT 16.4 10^3/uL (4.3-11.0)
[2023-01-04 06:13] LABS: ALBUMIN 3.2 GM/DL (3.2-4.5); BILIRUBIN,TOTAL 1.8 MG/DL (0.1-1.0); CALCIUM 8.9 MG/DL (8.5-10.1); CREATININE SERUM 0.69 MG/DL (0.60-1.30); MAGNESIUM 1.8 MG/DL (1.6-2.4); PHOSPHORUS 3.5 MG/DL (2.3-4.7); POTASSIUM 4.4 MMOL/L (3.6-5.0); TOTAL PROTEIN 6.7 GM/DL (6.4-8.2)
[2023-01-04] MEDS: POTASSIUM CL 10MEQ/50ML IVPB 50 ML IV SCH (06:30)
[2023-01-04] MEDS: MAGNESIUM 1 GM/100 ML IVPB 100 ML IV SCH (06:30)
[2023-01-04] MEDS: KCL 20 MEQ TAB (K-DUR) PO SCH (06:31)
[2023-01-04] MEDS: CATHETER FLUSH 10 ML SYR IVP SCH (06:31)
[2023-01-04] MEDS ORDERED: LEVOTHYROXINE 100 MCG (LEVOTHROID) TAB PO SCH (07:00)
[2023-01-04] MEDS ORDERED: RT--FLUTICASONE/SALMETEROL 232-14 (AIRDUO RespiCLICK) IH SCH (08:00)
--- NOTE | 2023-01-04 08:27 | Progress Note - Cardiology ---
Cardiology SOAP Progress Note Subjective: Sitting up in bed States she is feeling better this morning Reports she felt her heart beat fast for a few minutes earlier this morning No c/o CP, syncope or near syncope No c/o dizziness Reports freq cough which is productive No c/o n/v/d Objective: I&O/Vital Signs 01/03/23 01/03/23 01/03/23 01/03/23 20:49 21:00 22:00 23:00 Pulse 90 80 81 Resp 25 24 28 B/P (MAP) 127/75 (101) 142/83 (118) Pulse Ox 91 91 92 89 O2 Delivery Room Air Room Air Room Air Room Air 01/03/23 01/04/23 01/04/23 01/04/23 23:59 00:00 00:30 01:00 Pulse 90 93 Resp 25 18 B/P (MAP) 131/71 (87) 123/71 (86) Pulse Ox 94 91 95 O2 Delivery Nasal Cannula Room Air Nasal Cannula Nasal Cannula O2 Flow Rate 3.00 4.00 4.00 01/04/23 01/04/23 01/04/23 01/04/23 01:00 02:00 03:00 03:23 Temp 36.2 Pulse 93 87 92 Resp 22 B/P (MAP) 118/84 (105) Pulse Ox 98 94 O2 Delivery Nasal Cannula Nasal Cannula O2 Flow Rate 4.00 4.00 01/04/23 01/04/23 01/04/23 01/04/23 04:00 04:00 05:00 06:00 Pulse 81 79 82 Resp 17 18 18 B/P (MAP) 106/70 (87) 113/62 (82) 113/70 (86) Pulse Ox 96 94 95 95 O2 Delivery Nasal Cannula Nasal Cannula Nasal Cannula Nasal Cannula O2 Flow Rate 4.00 3.00 4.00 4.00 01/04/23 06:36 Pulse Ox 97 O2 Delivery Nasal Cannula O2 Flow Rate 3.00 01/04/23 00:00 Intake Total 810 ml Balance 810 ml Weight (Pounds): 159 Weight (Ounces): 6.0 Weight (Calculated Kilograms): [id number] Constitutional: AAO x 3, well-developed, well-nourished Respiratory: No accessory muscle use, No respiratory distress; chest expansion is symmetric, chest is bilaterally symmetric, rhonchi (scattered), other (coarse crackles bases bilat) Cardiovascular: irregularly irregular; No JVD; S1 and S2 Gastrointestional: No tender; soft, round, audible bowel sounds Extremities: no lower extremity edema bilateral Neurologic/Psychiatric: oriented x 3, other (moves all limbs equally) Skin: No rash on exposed areas, No ulcerations on exposed areas Results/Procedures: Labs Laboratory Tests 01/04/23 04:41: White Blood Count 16.4H, Red Blood Count 5.04, Hemoglobin 15.2, Hematocrit 44, Mean Corpuscular Volume 88, Mean Corpuscular Hemoglobin 30, Mean Corpuscular Hemoglobin Concent 34, Red Cell Distribution Width 12.1, Platelet Count 446H, Mean Platelet Volume 10.1, Immature Granulocyte % (Auto) 1, Neutrophils (%) (Auto) 80H, Lymphocytes (%) (Auto) 12, Monocytes (%) (Auto) 6, Eosinophils (%) (Auto) 2, Basophils (%) (Auto) 0, Neutrophils # (Auto) 13.1H, Lymphocytes # (Auto) 2.0, Monocytes # (Auto) 0.9, Eosinophils # (Auto) 0.3, Basophils # (Auto) 0.1, Immature Granulocyte # (Auto) 0.1, Sodium Level 134L, Potassium Level 4.4, Chloride Level 104, Carbon Dioxide Level 19L, Anion Gap 11, Blood Urea Nitrogen 11, Creatinine 0.69, Estimat Glomerular Filtration Rate 93, BUN/Creatinine Ratio 16, Glucose Level 112H, Calcium Level 8.9, Corrected Calcium 9.5, Phosphorus Level 3.5, Magnesium Level 1.8, Total Bilirubin 1.8H, Aspartate Amino Transf (AST/SGOT) 17, Alanine Aminotransferase (ALT/SGPT) 22, Alkaline Phosphatase 80, Total Protein 6.7, Albumin 3.2 Microbiology 01/03/23 MRSA Screen - Final, Complete MRSA not isolated A/P: Assessment: Newly dx a-fib with RVR - converted to SR (brief episode of PSVT witnessed at the time of physical exam on 01-04-23) - first dx on ECG at [facility] ED on 01-02-23 URI - management per medical servcies Low TSH (indicative of hyperthyroidism) - lab of 01-02-23 - management per medical services H/O Palpitations - 24 HR Holter of 78-22 showed NSR with av HR 72 bpm. A few atrial tach runs up to 6 beats in length and up to 160 bpm. No VT. Mod number of isolated PVC's (burden 0.4%) No signif christa Coronary artery disease - with a history of acute myocardial infarction in December 2011 which was treated with primary angioplasty and stenting of the proximal right coronary artery. The patient received Resolute 2.5 x 13 millimeter stent in the right coronary artery. - MPI of 05-16-22: Read by Dr. Campbell showed no significant ischemia or infarction. Normal left ventricular size, ejection fraction 67% H/o ischemic cardiomyopathy - with an ejection fraction of 40 to 45% at the time of cardiac catheterization of December 2011. - Echo of 04-22-22 LVEF 55-60%. Mild to mod AoR. PASP 20-25 mmHg - Last echo of 01/03/23: LVEF 55-60%, mild to mod MR History of tobacco use - from which she has been refraining since 2009 Hypothyroidism - being treated with thyroid replacement therapy and being managed by pcp; currently iatrogenic hyperthyroidism (TSH 0.02 on 07/10/19) that is managed by her pcp GI - Reflux esophagitis and a small hiatal hernia and gastroesophageal reflux per upper endoscopy carried out by Dr. Steele in January 2012. Medication Intolerances - Allergy to SHAHRIAR inhibitor. - Allergy to warfarin. Hyperlipidemia - currently being treated with statin therapy - managed by PCP Carotid dz - Minimal carotid arterial disease per carotid u/s from 09-29-21 Plan: * Brief episode of PSVT during physical exam this morning - we will increase the Cardizem CD to 300mg daily * Continue Eliquis for stroke prophylaxis * Management of URI is with the Med svce * Management of hyperthyroidism is with the Med svce * Ok to discharge home from cardiac stand point with out pt f/u DAVID MALDONADO Jan 04, 2023 08:27
[2023-01-04] MEDS ORDERED: APIX5TAB PO (08:33)
[2023-01-04] MEDS ORDERED: DILT300C52 PO (08:33)
--- NOTE | 2023-01-04 08:44 | Progress Note - Cardiology ---
Cardiology SOAP Progress Note Subjective: No cp or palp or syncope No n/v/d No shortness of breath at rest No focal weakness Gen weakness improving Wishes to go home Objective: I&O/Vital Signs 01/03/23 01/03/23 01/03/23 01/03/23 20:49 21:00 22:00 23:00 Pulse 90 80 81 Resp 25 24 28 B/P (MAP) 127/75 (101) 142/83 (118) Pulse Ox 91 91 92 89 O2 Delivery Room Air Room Air Room Air Room Air 01/03/23 01/04/23 01/04/23 01/04/23 23:59 00:00 00:30 01:00 Pulse 90 93 Resp 25 18 B/P (MAP) 131/71 (87) 123/71 (86) Pulse Ox 94 91 95 O2 Delivery Nasal Cannula Room Air Nasal Cannula Nasal Cannula O2 Flow Rate 3.00 4.00 4.00 01/04/23 01/04/23 01/04/23 01/04/23 01:00 02:00 03:00 03:23 Temp 36.2 Pulse 93 87 92 Resp 22 B/P (MAP) 118/84 (105) Pulse Ox 98 94 O2 Delivery Nasal Cannula Nasal Cannula O2 Flow Rate 4.00 4.00 01/04/23 01/04/23 01/04/23 01/04/23 04:00 04:00 05:00 06:00 Pulse 81 79 82 Resp 17 18 18 B/P (MAP) 106/70 (87) 113/62 (82) 113/70 (86) Pulse Ox 96 94 95 95 O2 Delivery Nasal Cannula Nasal Cannula Nasal Cannula Nasal Cannula O2 Flow Rate 4.00 3.00 4.00 4.00 01/04/23 06:36 Pulse Ox 97 O2 Delivery Nasal Cannula O2 Flow Rate 3.00 01/04/23 00:00 Intake Total 810 ml Balance 810 ml Weight (Pounds): 159 Weight (Ounces): 6.0 Weight (Calculated Kilograms): [id number] Constitutional: AAO x 3, well-developed, well-nourished Respiratory: No accessory muscle use, No respiratory distress; chest expansion is symmetric, chest is bilaterally symmetric, rhonchi (scattered), other (coarse crackles bases bilat) Cardiovascular: irregularly irregular; No JVD; S1 and S2 Gastrointestional: No tender; soft, round, audible bowel sounds Extremities: no lower extremity edema bilateral Neurologic/Psychiatric: oriented x 3, other (moves all limbs equally) Skin: No rash on exposed areas, No ulcerations on exposed areas Results/Procedures: Labs Laboratory Tests 01/04/23 04:41: White Blood Count 16.4H, Red Blood Count 5.04, Hemoglobin 15.2, Hematocrit 44, Mean Corpuscular Volume 88, Mean Corpuscular Hemoglobin 30, Mean Corpuscular Hemoglobin Concent 34, Red Cell Distribution Width 12.1, Platelet Count 446H, Mean Platelet Volume 10.1, Immature Granulocyte % (Auto) 1, Neutrophils (%) (Auto) 80H, Lymphocytes (%) (Auto) 12, Monocytes (%) (Auto) 6, Eosinophils (%) (Auto) 2, Basophils (%) (Auto) 0, Neutrophils # (Auto) 13.1H, Lymphocytes # (Auto) 2.0, Monocytes # (Auto) 0.9, Eosinophils # (Auto) 0.3, Basophils # (Auto) 0.1, Immature Granulocyte # (Auto) 0.1, Sodium Level 134L, Potassium Level 4.4, Chloride Level 104, Carbon Dioxide Level 19L, Anion Gap 11, Blood Urea Nitrogen 11, Creatinine 0.69, Estimat Glomerular Filtration Rate 93, BUN/Creatinine Ratio 16, Glucose Level 112H, Calcium Level 8.9, Corrected Calcium 9.5, Phosphorus Level 3.5, Magnesium Level 1.8, Total Bilirubin 1.8H, Aspartate Amino Transf (AST/SGOT) 17, Alanine Aminotransferase (ALT/SGPT) 22, Alkaline Phosphatase 80, Total Protein 6.7, Albumin 3.2 Microbiology 01/03/23 MRSA Screen - Final, Complete MRSA not isolated Laboratory Tests 01/02/23 22:05 01/03/23 04:07 01/04/23 04:41 A/P: Assessment: Newly dx a-fib with RVR - converted to SR (brief episode of PSVT witnessed at the time of physical exam on 01-04-23) - first dx on ECG at [facility] ED on 01-02-23 URI - management per medical servcies Low TSH (indicative of hyperthyroidism) - lab of 01-02-23 - management per medical services H/O Palpitations - 24 HR Holter of 04-22-22 showed NSR with av HR 72 bpm. A few atrial tach runs up to 6 beats in length and up to 160 bpm. No VT. Mod number of isolated PVC's (burden 0.4%) No signif christa Coronary artery disease - with a history of acute myocardial infarction in December 2011 which was treated with primary angioplasty and stenting of the proximal right coronary artery. The patient received Resolute 2.5 x 13 millimeter stent in the right coronary artery. - MPI of 05-16-22: Read by Dr. Campbell showed no significant ischemia or infarction. Normal left ventricular size, ejection fraction 67% H/o ischemic cardiomyopathy - with an ejection fraction of 40 to 45% at the time of cardiac catheterization of December 2011. - Echo of 04-22-22 LVEF 55-60%. Mild to mod AoR. PASP 20-25 mmHg - Last echo of 01/03/23: LVEF 55-60%, mild to mod MR History of tobacco use - from which she has been refraining since 2009 Hypothyroidism - being treated with thyroid replacement therapy and being managed by pcp; currently iatrogenic hyperthyroidism (TSH 0.02 on 07/10/19) that is managed by her pcp GI - Reflux esophagitis and a small hiatal hernia and gastroesophageal reflux per upper endoscopy carried out by Dr. Stelee in January 2012. Medication Intolerances - Allergy to SHAHRIAR inhibitor. - Allergy to warfarin. Hyperlipidemia - currently being treated with statin therapy - managed by PCP Carotid dz - Minimal carotid arterial disease per carotid u/s from 09-29-21 Plan: * Brief episode of PSVT during physical exam this morning - we will increase the Cardizem CD to 300mg daily * Continue Eliquis for stroke prophylaxis * Management of URI is with the Med svce * Management of hyperthyroidism is with the Med svce * Ok to discharge home from cardiac stand point with out pt f/u RHONA TANNER MD FACP [facility] Jan 04, 2023 08:44
[2023-01-04] MEDS ORDERED: LORATADINE (CLARITIN) 10 MG TAB PO SCH (09:00)
[2023-01-04] MEDS ORDERED: FLUTICASONE NASAL SPRAY (FLONASE) 16 GM BTL NS SCH (09:00)
[2023-01-04] MEDS: APIXABAN 5 MG (ELIQUIS) TABLET PO SCH (09:07)
[2023-01-04] MEDS: guaiFENesin/DM (ROBITUSSIN DM) 10 ML UDC PO PRN (09:12)
[2023-01-04] MEDS ORDERED: CEFD300C3 PO (11:29)
--- NOTE | 2023-01-04 11:30 | Discharge Summary ---
Discharge Summary Hospital Course Was the Problem List Reviewed?: Yes Problems/Dx: (1) Atrial flutter with rapid ventricular response Status: Acute Hospital Course Date of Admission: Jan 03, 2023 at 00:41 Admission Diagnosis : Family Physician/Provider: Anselmo Hollingsworth DO Date of Discharge: 01/04/23 Discharge Diagnosis: [ ] Hospital Course: Short course after she was admitted for new onset AF RVR. Cardiology consulted and Cardizem drip was required. Patient did well and was DC in improved condition. Labs and Pending Lab Test: Laboratory Tests 01/04/23 04:41: White Blood Count 16.4H, Red Blood Count 5.04, Hemoglobin 15.2, Hematocrit 44, Mean Corpuscular Volume 88, Mean Corpuscular Hemoglobin 30, Mean Corpuscular Hemoglobin Concent 34, Red Cell Distribution Width 12.1, Platelet Count 446H, Mean Platelet Volume 10.1, Immature Granulocyte % (Auto) 1, Neutrophils (%) (Auto) 80H, Lymphocytes (%) (Auto) 12, Monocytes (%) (Auto) 6, Eosinophils (%) (Auto) 2, Basophils (%) (Auto) 0, Neutrophils # (Auto) 13.1H, Lymphocytes # (Auto) 2.0, Monocytes # (Auto) 0.9, Eosinophils # (Auto) 0.3, Basophils # (Auto) 0.1, Immature Granulocyte # (Auto) 0.1, Sodium Level 134L, Potassium Level 4.4, Chloride Level 104, Carbon Dioxide Level 19L, Anion Gap 11, Blood Urea Nitrogen 11, Creatinine 0.69, Estimat Glomerular Filtration Rate 93, BUN/Creatinine Ratio 16, Glucose Level 112H, Calcium Level 8.9, Corrected Calcium 9.5, Phosphorus Level 3.5, Magnesium Level 1.8, Total Bilirubin 1.8H, Aspartate Amino Transf (AST/SGOT) 17, Alanine Aminotransferase (ALT/SGPT) 22, Alkaline Phosphatase 80, Total Protein 6.7, Albumin 3.2 Microbiology 01/03/23 MRSA Screen - Final, Complete MRSA not isolated Home Meds Active Cefdinir 300 Mg Capsule 300 Mg PO BID Diltiazem 24Hr ER (Diltiazem HCl) 300 Mg Cap.er.24h 300 Mg PO DAILY Eliquis (Apixaban) 5 Mg Tablet 5 Mg PO BID Reported Tylenol Extra Strength (Acetaminophen) 500 Mg Tablet 1,000 Mg PO Q8H PRN Saline Nose [place] (Sodium Chloride) 0.65 % [place] 1 [place] NS UD PRN Aspirin EC (Aspirin) 81 Mg Tablet.dr 81 Mg PO HS Cetirizine HCl 10 Mg Tablet 10 Mg PO DAILY Metoprolol Succinate 25 Mg Tab.er.24h 25 Mg PO DAILY Levothyroxine Sodium 100 Mcg Tablet 100 Mcg PO DAILY Fluticasone Propionate 50 Mcg/Actuation [place].susp 1 [place] NSEACH DAILY Symbicort 160-4.5 Mcg Inhaler (Budesonide/Formoterol Fumarate) 160 Mcg-4.5 Mcg/Actuation Hfa.aer.ad 2 Puff INH BID Ventolin Hfa (Albuterol Sulfate) 1 Puff Puff 2 Puff IH Q6H PRN Atorvastatin Calcium 40 Mg Tablet 40 Mg PO HS Assessment/Pt Instructions PCP 1 week Cardiology Discharge Planning: <30 minutes discharge planning Discharge Instructions Discharge Diet: No Restrictions Discharge Physical Examination Vital Signs Vital Signs Date Time Temp Pulse Resp B/P (MAP) Pulse Ox O2 Delivery O2 Flow Rate FiO2 01/04/23 10:00 96 24 99/70 (80) 90 Room Air 01/04/23 07:00 3.00 01/04/23 03:23 36.2 General Appearance: No Apparent Distress, WD/WN Respiratory: Lungs Clear, Normal Breath Sounds, Wheezing (subtle) Allergies: Coded Allergies: cephalexin (Verified Allergy, Unknown, HIVES, 08/04/10) warfarin (Unverified Allergy, Unknown, 10/15/14) codeine (Verified Adverse Reaction, Unknown, MADE iLL, 08/04/10) Discharge Summary Date of Admission Jan 03, 2023 at 00:41 Date of Discharge Discharge Date: Jan 04, 2023 Admission Diagnosis Atrial Flutter w/ RVR HUMZA GALVAN DO Jan 04, 2023 11:29
== END 2023-01-04 14:10 | disposition home or self-care (01) | DRG 310 ==
LOC: EDUNIT# 21:45 → ER 21:47 → ICU 01-03 00:41
PROVIDERS: ADMIT Internal Medicine; ATTEND Internal Medicine
DX: I48.92 Unspecified atrial flutter (principal); J44.9 Chronic obstructive pulmonary disease, unspecified; R05.9 Cough, unspecified; D72.829 Elevated white blood cell count, unspecified; I10 Essential (primary) hypertension; I47.1 Supraventricular tachycardia; E78.5 Hyperlipidemia, unspecified; I25.5 Ischemic cardiomyopathy; K21.9 Gastro-esophageal reflux disease without esophagitis; E03.9 Hypothyroidism, unspecified; Z79.82 Long term (current) use of aspirin; Z79.51 Long term (current) use of inhaled steroids; Z87.891 Personal history of nicotine dependence; Z90.710 Acquired absence of both cervix and uterus; Z98.890 Other specified postprocedural states; I25.2 Old myocardial infarction; Z95.5 Presence of coronary angioplasty implant and graft
CPT/HCPCS: 36415; 71045; 80053; 80061; 83735; 83874; 84100; 84439; 84443; 84484; 85007; 85025; 85027; 85610; 85730; 86141; 87081; 87636; 93005; 93041; 93306; 94640

== ENCOUNTER → 2023-03-28 | Outpatient (CLI) | payer MEDICARE, OTHER ==
[~2023-03-28] MED LIST changes: +ACET-2267 PO; +APIX5TAB PO; +BUDE10.2 INH; +CEFD300C3 PO; +DILT300C52 PO; +FLUT16SP22 NSEACH; +LEVO100T7 PO; +SODI45SP9 NS
--- NOTE | 2023-03-28 13:41 | Diagnostic Imaging Report ---
INDICATION: Postmenopausal screening. COMPARISON: None FINDINGS: AP Spine L1-L4: [BMD (g/cm2): 0.910] [T-Score: -2.4] [Z-Score: -0.8] [BMD Previous: na] [BMD % Change: na] LT Hip Neck: [BMD (g/cm2): 0.717] [T-Score: -2.3] [Z-Score: -0.6] LT Hip Total: [BMD (g/cm2):0.769] [T-Score:-1.9] [Z-Score: -0.4] [BMD Previous: na] [BMD % Change: na] RT Hip Neck: [BMD (g/cm2):0.755] [T-Score:-2.0] [Z-Score:-0.4] RT Hip Total: [BMD (g/cm2):0.706] [T-score:-2.4] [Z-Score:-0.9] [BMD Previous:na] [BMD % Change:na] *Indicates significant change from prior examination based on 95% confidence level. World Health Organization criteria for BMD interpretation classify patients as Normal (T-score at or above -1.0), Osteopenic (T-score between -1.0 and -2.5) or Osteoporotic (T-score at or below -2.5). LIMITATIONS AND MODIFICATION: None. FRACTURE RISK (FRAX SCORE): The ten year probability of (%): Major Osteoporotic Fracture: [14.2] Hip Fracture: [3.5] IMPRESSION: 1. Osteopenia (Low bone mass). 2. Baseline examination. 3. See below National Osteoporosis Foundation guidelines on when to potentially initiate pharmacologic therapy. Based on the National Osteoporosis Foundation Guidelines, pharmacologic treatment should be initiated in any of the following, unless clinical conditions suggest otherwise: * Any patient with prior fragility fracture of the hip or vertebrae. A spine fracture indicates 5X risk for subsequent spine fracture and 2X risk for subsequent hip fracture. * Osteoporosis (T-score <-2.5). * Postmenopausal women and men age 50 and older with low bone mass/osteopenia (T-score between -1.0 and -2.5) by DXA and 10-year major osteoporotic fracture greater than 20% or a 10-year probability of hip fracture greater than 3%. These fracture risks are supplied above in the FRAX score, if applicable. * Clinician judgement and/or patient preferences may indicate treatment for people with 10-year fracture probabilities above or below these levels. Dictated by: Dictated on workstation # [id number]
== END ==
LOC: RAD 11:30
PROVIDERS: ATTEND Pediatrics
DX: M85.80 Other specified disorders of bone density and structure, unspecified site (principal); Z78.0 Asymptomatic menopausal state
CPT/HCPCS: 77080

== ENCOUNTER 2023-03-30 14:43 | Emergency (ER) | payer MEDICARE ==
[~2023-03-30] VITALS: Ht 162.6 cm; Wt 68.0 kg
--- NOTE | 2023-03-30 15:08 | ED Cardiac General ---
History of Present Illness General Chief Complaint: Cardiac/General Problems Stated Complaint: LOW BLOOD PRESSURE Source: patient Exam Limitations: no limitations History of Present Illness Date Seen by Provider: Mar 30, 2023 Time Seen by Provider: 15:04 Initial Comments Patient is a 72-year-old female who presents ED for concern for low blood pressure. Patient with a history of coronary artery disease, hypothyroidism. She states over the past few days her blood pressure has been running low. She states she had a blood pressure as low as 80/48 at home today. She states her blood pressure over the past few days has been in the lower 90s systolic. Patient saw her pie cutter yesterday Dr. Phillips and had a heart monitor placed. She was diagnosed with new onset A-fib in December. She does take Cardizem 300 mg daily as well as metoprolol 25 mg daily. She had an increase in her metoprolol of a half a dose in the evening 12.5 mg. She does take levothyroxine 75mcg for her hypothyroidism. History of hypothyroidism. She does have some lightheadedness and mild headache over the past few days. Denies any chest pain, cough, shortness of breath, Oscar pain, vomiting, diarrhea, fever, chills. She does report some nausea. Contacted her pie cutter today recommended come to ED for low blood pressure. Patient did not take her met oprolol or Cardizem yesterday or today Allergies and Home Medications Allergies Coded Allergies: cephalexin (Verified Allergy, Unknown, HIVES, 08/04/10) warfarin (Unverified Allergy, Unknown, 10/15/14) codeine (Verified Adverse Reaction, Unknown, MADE iLL, 08/04/10) Patient Home Medication List Home Medication List Reviewed: Yes Acetaminophen (Tylenol Extra Strength) 500 Mg Tablet, 1,000 MG PO Q8H PRN for PAIN-MILD (1-4), (Reported) Entered as Reported by: PHILIP JARAMILLO on 01/03/23 1225 Albuterol Sulfate (Ventolin Hfa) 1 Puff Puff, 2 PUFF IH Q6H PRN for SHORTNESS OF BREATH, (Reported) Entered as Reported by: REG SCHULTZ on 02/25/19 1004 Apixaban (Eliquis) 5 Mg Tablet, 5 MG PO BID Prescribed by: DAVID MALDONADO on 01/04/23 0833 Aspirin (Aspirin EC) 81 Mg Tablet.dr, 81 MG PO HS, (Reported) Entered as Reported by: PHILIP JARAMILLO on 01/03/23 1225 Atorvastatin Calcium (Atorvastatin Calcium) 40 Mg Tablet, 40 MG PO HS, (Reported) Entered as Reported by: REG SCHULTZ on 02/25/19 0956 Budesonide/Formoterol Fumarate (Symbicort 160-4.5 Mcg Inhaler) 160 Mcg-4.5 Mcg/Actuation Hfa.aer.ad, 2 PUFF INH BID, (Reported) Entered as Reported by: PHILIP JARAMILLO on 01/03/23 1225 Cefdinir (Cefdinir) 300 Mg Capsule, 300 MG PO BID Prescribed by: HUMZA GALVAN on 01/04/23 1129 Cetirizine HCl (Cetirizine HCl) 10 Mg Tablet, 10 MG PO DAILY, (Reported) Entered as Reported by: PHILIP JARAMILLO on 01/03/23 122 Diltiazem HCl (Diltiazem 24Hr ER) 300 Mg Cap.er.24h, 300 MG PO DAILY Prescribed by: DAVID MALDONADO on 01/04/23 0833 Fluticasone Propionate (Fluticasone Propionate) 50 Mcg/Actuation [place].susp, 1 SPRAY NSEACH DAILY, (Reported) Entered as Reported by: PHILIP JARAMILLO on 01/03/23 122 Levothyroxine Sodium (Levothyroxine Sodium) 100 Mcg Tablet, 100 MCG PO DAILY, (Reported) Entered as Reported by: PHILIP JARAMILLO on 01/03/23 1225 Metoprolol Succinate (Metoprolol Succinate) 25 Mg Tab.er.24h, 25 MG PO DAILY, (Reported) Entered as Reported by: PHILIP JARAMILLO on 01/03/23 1225 Sodium Chloride (Saline Nose [place]) 0.65 % [place], 1 SPRAY NS UD PRN for DRY NOSE, (Reported) Entered as Reported by: PHILIP JARAMILLO on 01/03/23 1225 Review of Systems Review of Systems Constitutional: No chills, No diaphoresis, No fever, No malaise, No weakness EENTM: No Eye Pain Respiratory: Denies Cough, Denies Orthopnea Cardiovascular: Denies Chest Pain Gastrointestinal: Denies Abdominal Pain, Denies Constipated, Denies Diarrhea, Denies Nausea Genitourinary: Denies Burning, Denies Discharge, Denies Drainage, Denies Frequency Musculoskeletal: No back pain, No joint pain Skin: No change in color, No change in hair/nails All Other Systems Reviewed Negative Unless Noted: Yes Past Kfmbmis-Uugmda-Amcgkg Hx Immunizations Up To Date Tetanus Booster (TDap): More than 5yrs Past Medical History Surgeries: Yes (HYSTERECTOMY, LUMPHECTOMY, BLADDER TUCK, cervical cryotherapy) Bladder Surgery, Coronary Stent, Hysterectomy Respiratory: Yes (HX TB) Pneumonia, Chronic Bronchitis, COPD Cardiac: Yes Cardiomyopathy, Coronary Artery Disease, Heart Attack, High Cholesterol Neurological: No 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 Disorders: No Female 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 Disorders: Denies 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 Sexually Transmitted Disease: No HIV/AIDS: No Kidney Infection Gastrointestinal: Yes Gastroesophageal Reflux, Hiatal Hernia Musculoskeletal: Yes Arthritis Endocrine: Yes Hypothyroidsim HEENT: Yes Cataract, Tinnitis Loss of Vision: Denies Hearing Impairment: Denies Cancer: Yes Cervical Did You Recieve Any Treatments: Yes What Type of Treatment Did You: Other Psychosocial: Yes Depression Integumentary: No Blood Disorders: No Adverse Reaction/Blood Tranf: No Family Medical History Alcoholism 19 FATHER Arthritis Cardiovascular disease 19 MOTHER Completed stroke 19 MOTHER Diabetes mellitus 19 MOTHER Drug abuse G8 BROTHER G8 BROTHER Hypertension 19 MOTHER Myocardial infarction 19 MOTHER Psychosocial problem 19 MOTHER G8 SISTER G8 SISTER Respiratory disorder No Family History of: AIDS Abdominal aortic aneurysm [place]'s disease Alzheimer's disease Aphasia Asthma Cancer of mouth Cataracts Colon cancer Congenital disease Congenital heart disease Coronary thrombosis Cystic fibrosis Deafness or hearing loss Dementia Dysphasia Fibrocystic disease of breast Gastroenteritis Glaucoma Headache disorder Hypercholesterolemia Infertility Kidney disease Neoplasm Not obtainable due to adoption Osteoporosis Parkinson's disease Prostate cancer Seizure disorder Severe allergy Thyroid disease Tuberculosis Visual disorder Physical Exam Vital Signs Vital Signs - First Documented 03/30/23 14:52 Temp 36.7 Pulse 68 Resp 21 B/P (MAP) 135/76 (95) Pulse Ox 96 Capillary Refill : Height, Weight, BMI Height: 5'4.00" Weight: 159lbs. 6.0oz. 72.411233vb; 24.97 BMI Method:Stated General Appearance: No Apparent Distress, WD/WN HEENT: PERRL/EOMI, TMs Normal, Normal ENT Inspection, Pharynx Normal Neck: Full Range of Motion, Normal Inspection, Non Tender, Supple Respiratory: Chest Non Tender, Lungs Clear, Normal Breath Sounds, No Accessory Muscle Use, No Respiratory Distress Cardiovascular: Regular Rate, Rhythm, No Edema, No Gallop, No JVD, No Murmur Gastrointestinal: Normal Bowel Sounds, No Organomegaly, No Pulsatile Mass, Non Tender Extremity: Normal Capillary Refill, Normal Inspection, Normal Range of Motion, Non Tender Neurologic/Psychiatric: Alert, Oriented x3, No Motor/Sensory Deficits, Normal Mood/Affect, stem assembler II-XII Norm as Tested Skin: Normal Color, Warm/Dry Progress/Results/Core Measures Results/Orders Lab Results Laboratory Tests Test 03/30/23 15:16 Range/Units White Blood Count 7.5 4.3-11.0 10^3/uL Red Blood Count 4.99 3.80-5.11 10^6/uL Hemoglobin 15.2 11.5-16.0 g/dL Hematocrit 46 35-52 % Mean Corpuscular Volume 92 80-99 fL Mean Corpuscular Hemoglobin 31 25-34 pg Mean Corpuscular Hemoglobin Concent 33 32-36 g/dL Red Cell Distribution Width 12.3 10.0-14.5 % Platelet Count 365 130-400 10^3/uL Mean Platelet Volume 10.4 9.0-12.2 fL Immature Granulocyte % (Auto) 0 % Neutrophils (%) (Auto) 65 42-75 % Lymphocytes (%) (Auto) 24 12-44 % Monocytes (%) (Auto) 8 0-12 % Eosinophils (%) (Auto) 2 0-10 % Basophils (%) (Auto) 1 0-10 % Neutrophils # (Auto) 4.9 1.8-7.8 X 10^3 Lymphocytes # (Auto) 1.8 1.0-4.0 X 10^3 Monocytes # (Auto) 0.6 0.0-1.0 X 10^3 Eosinophils # (Auto) 0.2 0.0-0.3 10^3/uL Basophils # (Auto) 0.0 0.0-0.1 10^3/uL Immature Granulocyte # (Auto) 0.0 0.0-0.1 10^3/uL Sodium Level 138 135-145 MMOL/L Potassium Level 4.5 3.6-5.0 MMOL/L Chloride Level 105 98-107 MMOL/L Carbon Dioxide Level 24 21-32 MMOL/L Anion Gap 9 5-14 MMOL/L Blood Urea Nitrogen 14 7-18 MG/DL Creatinine 0.79 0.60-1.30 MG/DL Estimat Glomerular Filtration Rate 80 BUN/Creatinine Ratio 18 Glucose Level 131 H 70-105 MG/DL Calcium Level 9.3 8.5-10.1 MG/DL Corrected Calcium 9.3 8.5-10.1 MG/DL Total Bilirubin 1.8 H 0.1-1.0 MG/DL Aspartate Amino Transf (AST/SGOT) 21 5-34 U/L Alanine Aminotransferase (ALT/SGPT) 16 0-55 U/L Alkaline Phosphatase 92 40-136 U/L Total Protein 7.3 6.4-8.2 GM/DL Albumin 4.0 3.2-4.5 GM/DL Thyroid Stimulating Hormone (TSH) 0.39 0.35-4.94 UIU/ML My Orders Orders - RENE ODONNELL Cbc With Automated Diff (03/30/23 15:03) Comprehensive Metabolic Panel (03/30/23 15:03) Thyroid Stimulating Hormone (03/30/23 15:03) Ekg Tracing (03/30/23 15:03) Vital Signs/I&O 03/30/23 03/30/23 03/30/23 14:52 16:18 16:23 Temp 36.7 36.7 Pulse 68 57 57 Resp 21 18 18 B/P (MAP) 135/76 (95) 136/80 (98) 136/80 Pulse Ox 96 93 93 Comment Sinus rhythm, 65 bpm, QRS duration 94 MS, QTc 418 MS Departure Communication (PCP) Reviewed previous ER visits, H&P, lab testing. History of coronary artery disease. Differential diagnosis of hypotension, dehydration, acute kidney injury, ACS. Currently on Cardizem and metoprolol. History of iatrongeic hy perthyroidism. Patient states she is currently experiencing hypothyroidism and had a decrease in her levothyroxine 75 mcg. Patient follows pie cutter . Concern for low blood pressure of 80 to 90 systolic at home over the past two days. She has had some mild lightheadedness and headache over the past few days. Readings over the past 2 days. She had a heart monitor placed yesterday. Patient with angioplasty in 2011 of her right coronary artery. Echocardiogram December of this year showed 55 to 60% ejection fraction. No current chest pain, shortness of breath, abdominal pain vomiting, diarrhea. No appreciation of lower leg swelling. She was normotensive on arrival. She is currently asymptomatic. Discussed CBC, CMP, EKG and TSH. CBC, CMP grossly unremarkable. Normal TSH. EKG showed sinus rhythm. Heart rate remained in the 60s. patient blood pressure remained normotensive. She does not appear dehydrated. No evidence of orthostatic hypotensive. Patient was discussed with Dr. Campbell pie cutter as Dr. Goff cardiology is on vacation. She states she has been taking a a extra half tab of her metoprolol at night over the past 3 days. Recommend stopping the half tab. She increased her dose due to increased blood pressure. continue with the Cardizem and metoprolol. Recommend getting new batteries for her blood pressure cuff. She has not taken her blood pressure medication in the past 2 days. If continue low blood pressure may need to make further adjustments of her medication. Currently asymptomatic. Patient safe for discharge Impression Primary Impression: Feared condition not demonstrated Disposition: 01 HOME, SELF-CARE Condition: Stable Departure-Patient Inst. Decision time for Depature: 16:17 Referrals: RHONA TANNER MD FACP [facility] PHILIP HUITRON DO (PCP/Family) Primary Care Physician Patient Instructions: Blood Pressure Testing and Measurement Add. Discharge Instructions: Recommend stopping the half tab of metoprolol. Recommend new batteries for your blood pressure cuff. If continue having worsening symptoms return back to ED. follow-up with your pie cutter for further evaluation. All discharge instructions reviewed with patient and/or family. Voiced understanding. RENE ODONNELL Mar 30, 2023 15:08
[2023-03-30 15:27] LABS: BASOPHILS % (AUTO) 1 % (0-10); EOSINOPHILS # (AUTO) 0.2 10^3/uL (0.0-0.3); EOSINOPHILS % (AUTO) 2 % (0-10); HEMATOCRIT 46 % (35-52); HEMOGLOBIN 15.2 g/dL (11.5-16.0); LYMPHOCYTES # (AUTO) 1.8 X 10^3 (1.0-4.0); LYMPHOCYTES % (AUTO) 24 % (12-44); MEAN CORPUSCULAR HEMOGLOBIN 31 pg (25-34); MEAN CORPUSCULAR HGB CONC 33 g/dL (32-36); MEAN CORPUSCULAR VOLUME 92 fL (80-99); MEAN PLATELET VOLUME 10.4 fL (9.0-12.2); MONOCYTES # (AUTO) 0.6 X 10^3 (0.0-1.0); MONOCYTES % (AUTO) 8 % (0-12); NEUTROPHILS # (AUTO) 4.9 X 10^3 (1.8-7.8); NEUTROPHILS % (AUTO) 65 % (42-75); PLATELET COUNT 365 10^3/uL (130-400); WHITE BLOOD COUNT 7.5 10^3/uL (4.3-11.0)
[2023-03-30 15:36] LABS: POTASSIUM 4.5 MMOL/L (3.6-5.0)
[2023-03-30 15:37] LABS: CALCIUM 9.3 MG/DL (8.5-10.1)
[2023-03-30 15:39] LABS: TOTAL PROTEIN 7.3 GM/DL (6.4-8.2)
[2023-03-30 15:40] LABS: BILIRUBIN,TOTAL 1.8 MG/DL (0.1-1.0)
[2023-03-30 15:42] LABS: CREATININE SERUM 0.79 MG/DL (0.60-1.30)
[2023-03-30 16:23] VITALS: BP 136/80
== END 2023-03-30 16:23 | disposition home or self-care (01) ==
LOC: EDUNIT# 14:43 → ER 14:45
DX: Z71.1 Person with feared health complaint in whom no diagnosis is made (principal); R51.9 Headache, unspecified; R42 Dizziness and giddiness; I48.91 Unspecified atrial fibrillation; E03.9 Hypothyroidism, unspecified; Z79.890 Hormone replacement therapy; Z79.899 Other long term (current) drug therapy; Z28.310 Unvaccinated for COVID-19
CPT/HCPCS: 36415; 80053; 84443; 85025; 93005

== ENCOUNTER 2023-07-19 20:27 | Outpatient (CLI) | payer MEDICARE | END 2023-07-20 06:25 | LOC: CANPRECLI → SLEEP 20:27 | PROVIDERS: ATTEND Otolaryngology Otolaryngology/Facial Plastic Surgery | DX: G47.33 Obstructive sleep apnea (adult) (pediatric) (principal) | CPT/HCPCS: 95811 ==